=== PATIENT | female | born 1955 | race Caucasian/White ===

== ENCOUNTER 2016-04-05 15:52 | Inpatient (IN) | payer MEDICARE, MEDICAID ==
[~2016-04-05] VITALS: Ht 165.1 cm; Wt 82.9 kg
--- NOTE | ~2016-04-05 | OR ---
PATIENT'S NAME: CHINA DYE [facility] AGE: 60 Y [address] ROOM: [address] [address] LOCATION: GPCU ADMIT DATE: 04/07/2016 OR/Procedure Report DISCHARGE DATE: 04/16/2016 FAMILY PHYSICIAN: Physician, Unknown ATTENDING PHYSICIAN: Narinder Souza SURGEON: Narinder Souza DO SENIOR C SOFTWARE ENGINEER: DATE OF PROCEDURE: 04/09/2016 PREOPERATIVE DIAGNOSIS: Multivessel coronary artery disease with unstable angina. POSTOPERATIVE DIAGNOSIS: Multivessel coronary artery disease with unstable angina. SECONDARY DIAGNOSES: Include: 1. Chronic obstructive pulmonary disease. 2. History of methamphetamine abuse. PROCEDURE PERFORMED: Coronary artery bypass grafting x3 with left internal mammary artery to the left anterior descending, reverse saphenous vein graft to the obtuse marginal, and right internal mammary artery to the right coronary artery. BRIEF HISTORY: Mrs. Dye is a 60-year-old white female with the above-noted diagnosis. DESCRIPTION OF PROCEDURE: She has been brought to the operative suite today after informed consent was obtained. Sterilely prepped and draped today for sternotomy with vein harvest. A sternal incision was made, and the sternum was divided in the midline with a sternal saw. Concurrently, saphenous vein was harvested endoscopically from the lower extremities. Mammary retractor was placed on the left. The left internal mammary artery was harvested in the standard fashion with surgical clips and electrocautery. We then moved the retractor to the right and then harvested the right internal mammary artery in a similar fashion. Heparin was then given, and each mammary was divided and prepared for bypass. Mammary retractor was removed. Sternal retractor was placed. Pericardium was opened, pericardial well was created, and cannulation sutures placed in the ascending aorta and right atrium for bypass and cardioplegia cannulas. The patient was then cannulated and connected to the bypass pump without difficulty. The vein was then prepared for bypass. An adequate ACT had been achieved, and cardiopulmonary bypass was initiated. A crossclamp was applied. Antegrade and retrograde cardioplegia was given along with topical cold saline for cardiac arrest, and the heart arrested without difficulty. The right coronary was identified and opened, and right internal PATIENT'S NAME: CHINA DYE [facility] AGE: 60 Y [address] ROOM: [address] [place], [place] [address] LOCATION: GPCU ADMIT DATE: 04/07/2016 OR/Procedure Report DISCHARGE DATE: 04/16/2016 FAMILY PHYSICIAN: Physician, Unknown ATTENDING PHYSICIAN: Narinder Souza mammary artery anastomosed to this in an end-to-side fashion with 7-0 Prolene. Bulldogs were removed momentarily to show good distal flow and an intact anastomosis, and the bulldog was replaced. Cardioplegia was given, and we performed our venous anastomosis to the obtuse marginal. Another dose of cardioplegia was given. Then, the left internal mammary artery was anastomosed to the left anterior descending artery again in end-to-side fashion with 7-0 Prolene. Bulldogs were removed from each of the mammary arteries, and the crossclamp was removed. Partial occlusion clamp was applied. Warm blood was now initiated via the retrograde system, and the vein graft was anastomosed to the ascending aorta with 4-0 punch and 6-0 Prolene. With this completed, the partial occlusion clamp was removed, vein graft de- aired, bulldog removed, and distal flow was given. All distal sites were hemostatic. The proximal site was hemostatic. Two atrial and one ventricular temporary pacemaking wires were placed. The retrograde cannula was removed, and ventilations were initiated. We then weaned from cardiopulmonary bypass without difficulty, removing the venous cannula, returning appropriate volume from the pump to the patient, and then removing the ascending aortic cannula. Copious amounts of antibiotic-infused saline was used to irrigate the sternum and mediastinum. The sternum was then approximated with the ZipFix system. Four chest tubes had been placed; one in each pleural space, one in the posterior pericardial space, and one in the anterior mediastinal space. We irrigated again and closed the soft tissues in a layered fashion. All sponge, instrument, and needle counts were correct, and the patient was transferred to the intensive care unit in stable condition. DO SALBADOR RANDOLPH/yosi /[id number] CC: Fabiana Quintana MD d: 04/23/16 1731 t: 04/24/16 1240, OPERATIVE SUMMARY
--- NOTE | ~2016-04-05 | DS ---
PATIENT'S NAME: CHINA DYE [facility] AGE: 60 Y [address] ROOM: [address] [place], [place] [address] LOCATION: GPCU ADMIT DATE: 04/07/2016 Discharge Summary DISCHARGE DATE: 04/16/2016 FAMILY PHYSICIAN: Physician, Unknown ATTENDING PHYSICIAN: Narinder Souza HOSPITAL COURSE: The patient is a 60-year-old white female with complaints of chest pain. She was admitted per the ACS protocol. Dr. Pitt was consulted for cardiac intervention. The patient underwent a stress test, which revealed [id number] inferolateral moderate reversibility. From there, the patient had an echocardiogram with an EF of 65 and no significant valvular abnormalities defined. The patient underwent a cardiac catheterization with Dr. Virgen. A multivessel coronary artery disease was identified. The patient was taken to the operative suite after consent for surgery on 04/09/2016 for coronary artery bypass grafting x3 vessels with a left internal mammary artery bypass to the left anterior descending, reverse saphenous vein graft to the obtuse marginal, and a right internal mammary artery bypass to the right coronary artery. The patient tolerated the surgery without complication. She transferred to the ICU postoperatively. She was slow to extubate. After extubation, she did require BiPAP due to elevated CO2 levels, but did not require reintubation. We did ask PT/OT to work with the patient. Her lines and drips were discontinued on postoperative day #1, and she transferred to the progressive care floor. In the following days, chest tubes, pacemaking wires, and Kong catheter were discontinued in the appropriate postoperative timeframe. She did not have any postoperative atrial fibrillation. Did have wound nurses come to see the patient as she did have a right-sided chest tube that had some depth to it and required special dressing changes. Care Management worked with the patient for discharge processing. The patient's home life is quite concerning. She is currently homeless. 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 During the patient's hospitalization, her client from her cancer, and therefore, the patient has nowhere to go home. The patient's children have allowed her to come stay with them; however, they do live in a hotel room. We did arrange for home health nurses to see the patient to keep an eye on her from a healing standpoint. The patient will require some dressing changes and close observation to ensure that she heals well. By 04/16/2016, the patient was found stable for discharge. DISCHARGE ORDERS: Include a cardiac prudent diet. Activity levels that include no pulling, pushing, or lifting heavier than 10 pounds until May 20, 2016. The patient will be asked to follow up with Cardiac Rehab on an outpatient basis. The patient will utilize a foam dressing to the chest tube sites. She is to remove the dressings with showering, and Home Health has PATIENT'S NAME: CHINA DYE [facility] AGE: 60 Y [address] ROOM: [address] [address] LOCATION: GPCU ADMIT DATE: 04/07/2016 Discharge Summary DISCHARGE DATE: 04/16/2016 FAMILY PHYSICIAN: Physician, Unknown ATTENDING PHYSICIAN: Narinder Souza contacted the home health nurse for the dressing changes. The patient will follow up with Dr. Quintana in 1 week. She will follow up with Cardiothoracic Surgery in 2 weeks, and she will follow up with Dr. Virgen in 2 weeks as well. FINAL DIAGNOSES: Include coronary artery disease, tobaccoism, hypertension, bipolar disorder, obesity, chronic obstructive pulmonary disease, and anxiety/depression. DISCHARGE MEDICATIONS: Include, 1. Lamictal 100 mg twice a day. 2. Celexa 40 mg daily. 3. Percocet 5/325 mg 1 to 2 every 4 to 6 hours as needed. 4. Amiodarone 200 mg twice a day. 5. Norvasc 2.5 mg twice a day. 6. Aspirin 81 mg daily. 7. Lipitor 40 mg daily. 8. Coreg 6.25 mg daily. 9. Lasix 40 mg daily. 10. Mucinex 1200 mg twice a day. 11. Potassium chloride 20 mEq daily. 12. Albuterol inhaler 2 puffs per inhalation 4 times a day. 13. Nicotine patch 21 mg, change daily. The patient verbalizes understanding of the discharge orders. The patient discharged in stable condition. KRYSTLE HENRIQUEZ APRN FOR DO NYDIA RANDOLPHQ/modl /[id number] d: 05/06/16 0432 t: 05/06/16 1131, DISCHARGE SUMMARY
--- NOTE | ~2016-04-05 | CON ---
PATIENT'S NAME: CHINA DYE [facility] AGE: 60 Y [address] ROOM: [place] [id number] LOCATION: GPCU ADMIT DATE: 04/07/2016 Consultation DISCHARGE DATE: FAMILY PHYSICIAN: PHYSICIAN, UNKNOWN ATTENDING PHYSICIAN: Fabiana Quintana DATE OF CONSULTATION: 04/15/2016 REFERRING PHYSICIAN: Dr. Souza REASON FOR CONSULTATION: Wound care consultation to evaluate and assess chest tube sites. HISTORY OF PRESENT ILLNESS: This is a 60-year-old female patient who was admitted to [facility] with chest pain. The patient ended up undergoing a coronary artery bypass grafting by Dr. Souza on 04/08/2016. The patient's chest tubes were removed on April 13. Sites had been left opened to air. The patient denies pain to her chest. She is complaining of buttocks pain and rating it a 5/10. The patient has been afebrile. She has a significant history of COPD, hypertension, depression, bipolar, obesity, and is a current smoker. She denies further skin issues. She reports a good oral intake. She has been working with physical and occupational therapy. She denies shortness of breath. She denies flu-like symptoms. She denies nausea or vomiting. She denies intermittent claudication symptoms. She denies history of DVT. PAST MEDICAL HISTORY: COPD, hypertension, bipolar, depression, obesity, and anxiety. PAST SURGICAL HISTORY: Partial liver removal, cholecystectomy, and hysterectomy. FAMILY HISTORY: The patient's father of cancer and her mother had heart disease. SOCIAL HISTORY: The patient lives in [place], [place]. She smokes about a pack of cigarettes per day and has done so for the last 35 years. She denies alcohol or illegal drug use. ALLERGIES: CONTRAST DYE, OPIOID, MORPHINE, ANALOX, PENICILLIN, CIPROFLOXACIN, CODEINE, AND HYDROCODONE. PATIENT'S NAME: CHINA DYE [facility] AGE: 60 Y [address] ROOM: [address] [place], [place] [address] LOCATION: GPCU ADMIT DATE: 04/07/2016 Consultation DISCHARGE DATE: FAMILY PHYSICIAN: PHYSICIAN, UNKNOWN ATTENDING PHYSICIAN: Fabiana Quintana REVIEW OF SYSTEMS: A 10-point review of systems was completed and all are negative except as mentioned above in the HPI. PHYSICAL EXAMINATION: VITAL SIGNS: Temperature 98.1, pulse 90, respirations 18, blood pressure 131/60, pulse oximetry 94% on 2 L. Height 5 feet 5 inches and weight 82.9 kg. GENERAL: The patient is alert and oriented, in no acute distress. HEENT: Head normocephalic, atraumatic. Oral mucosa intact. Anicteric sclerae. NECK: Supple without masses. RESPIRATORY: Even and unlabored. ABDOMEN: Soft. No organomegaly appreciated. EXTREMITIES: No edema noted. Pedal pulses +2. Capillary refill intact. Extremities are warm to touch. SKIN: Intact Mepilex foam dressing to the chest. Upper abdomen has 4 chest tube sites, opened to air. The middle two sites are slightly scabbed, wound bed moist and pink. The lateral right and lateral left site has yellow slough to the wound bed. Small amount of moist pink tissue. Periwound is erythemic. No purulent exudate. Small amount of serosanguineous exudate noted. Blanchable redness to buttocks and sacrum. No open areas noted. LABORATORY DATA: White blood cell count 7.1, hemoglobin 9.5, hematocrit 29.7, platelets 220. Sodium 138, potassium 4.2, chloride 97, bicarb 36, BUN 23, creatinine 0.6, and glucose 98. ASSESSMENT AND PLAN: Again, this 60-year-old female patient admitted to [facility] with chest pain. She underwent a coronary bypass grafting by Dr. Souza on 04/08/2016. Wound Care consult to evaluate and assess chest tube sites. 1. Upper abdomen chest tube site from recent CABG. Wounds appear down to the subcutaneous tissue. No purulent exudate noted. Periwounds are slightly erythemic. There appears to be slough to the wound beds. We will cleanse with hydrogen peroxide x1. Instructed nursing to loosely pack Aquacel into wound bed then cover with a Mepilex foam dressing, changing Tuesdays and Fridays. The erythema seems due to the inflammatory response, not active infection. We will continue to monitor and assess the site during hospitalization. 2. Blanchable redness to buttocks and sacrum. No pressure ulcers noted at this time. Instruct the patient on strict pressure redistribution measures. The patient has turned in bed [id number] q.2 hours. The patient was instructed to elevate heels all times on pillows. 3. Tobacco use. The patient is on a nicotine patch. She denied further help for tobacco cessation. PATIENT'S NAME: CHINA DYE [facility] AGE: 60 Y [address] ROOM: [place] [address] [facility] ADMIT DATE: 04/07/2016 Consultation DISCHARGE DATE: FAMILY PHYSICIAN: PHYSICIAN, UNKNOWN ATTENDING PHYSICIAN: Fabiana Quintana 4. Obesity. Lifestyle modifications were discussed. 5. Chronic obstructive pulmonary disease. The patient is on breathing treatments. RT is following. I would like to thank Dr. Souza for this consultation. ILDA BLOCK APRN FOR MD CHETAN HEREDIA/yosi /[id number] d: 04/15/16 1833 t: 04/21/16 1159, CONSULTATION REPORT
--- NOTE | ~2016-04-05 | ECHO ---
Transthoracic Echocardiography Report (TTE) Demographics Patient Name CHINA DYE Date of Study 04/05/2016 Patient Number [id number] Visit Number [id number] Date of 1955 Room Number G6313 Accession Number [id number] Gender Female Age 60 year(s) Referring Mariano Hartley MD Decorator Mannequin Missy Hall [facility], Physician Jennifer Cervantes RVT Physician Interpreting [facility] Environmental Compliance Specialist Physician Joleen REYES Supervising Ordering Physician MD/MLP Nurse Stress Machinist Helper Marine Conclusions Summary The estimated left ventricular ejection fraction is 65%.Moderate to severe concentric left ventricular hypertrophy with normal internal dimensions and WM. The left atrium is moderately dilated by LA volume index measurement. MAC. Mild aortic sclerosis. Trivial circumferential pericardial effusion. Mild MR. Trivial TR with normal pulmonary pressures. Procedure Type of Study TTE procedure:2D Echocardiogram. Procedure Date Date: 04/05/2016 Start: 07:09 PM Study Location: Inpatient Portable Technical Quality: Good visualization Indications:Chest pain. Additional Indications:htn Appropriate Use Criteria: 9 Patient Status: Routine Rhythm: Within normal limits HR: 67 bpm BP: 168/93 mmHg M-Mode/2D Measurements LV Diastolic Dimension: 4.81 cm LV Systolic Dimension: 3.26 cm LV Septum Diastolic: 1.79 cm LV Septum Systolic: 2.47 cm LV PW Diastolic: 1.74 cm AO Root Dimension: 1.9 cm Cardiac Output: 5.91 l/min AV Cusp Separation: 2.2 cm RV Diastolic Dimension: 1.3 cm LA volume: 79 ml LVOT: 2 cm RV Base: 3.24 cm LVOT VTI: 28.1 cm RV Mid: 2.23 cm LV Stroke volume: 88.23 ml TAPSE: 2.47 cm TDI-S': 17 cm/s Doppler Measurements AV Peak Velocity: 1.6 m/s MV Peak E-Wave: 0.56 m/s AV Peak Gradient: 10.24 mmHg MV Peak A-Wave: 1.15 m/s AV Mean Gradient: 6 mmHg MV E/A Ratio: 0.49 LVOT Peak Velocity: 1.13 m/s MV P1/2t: 89 msec TR Gradient:15.84 mmHg PV Peak Velocity: 1.1 m/s Estimated RAP:3 mmHg PV Peak Gradient: 4.84 mmHg Estimated RVSP: 19 mmHg Estimated PASP: 18.84 mmHg E' Septal Velocity: 0.05 m/s A' Septal Velocity: 0.07 m/s E' Lateral Velocity: 0.05 m/s A' Lateral Velocity: 0.11 m/s Findings Left Ventricle Moderate to severe concentric left ventricular hypertrophy rith normal internal dimension,EF and WM. Right Ventricle Normal right ventricle structure and function. Left Atrium The left atrium is moderately dilated by LA volume index measurement. Right Atrium Normal right atrial size. Mitral Valve Mild mitral regurgitation by color Doppler. Mild mitral annular calcification. Aortic Valve The aortic valve is mildly sclerotic. Tricuspid Valve Trivial tricuspid regurgitation by color Doppler. Pulmonic Valve Normal pulmonic valve structure and function. Pericardial Effusion Trivial pericardial effusion. Miscellaneous Visualized portions of the aortic root and ascending aorta appear normal in size. Pleural Effusion No evidence of pleural effusion. Contractility Score LV regional wall motion:(0-Non visualized 1-Normal 2-Hypokinesis 3-Akinesis 4-Dyskinesis 5-Aneurysm) Signature dtt: Joleen Virgen dtd: 04/05/16 1909 Physician Self Edit
--- NOTE | ~2016-04-05 | ENPV ---
Vascular Lower Extremity Vein Mapping Procedure Demographics Patient Name CHINA DYE Date of Study 04/07/2016 Patient Number [id number] Gender Female Date of 1955 Age 60 Visit Number [id number] Height 65 Accession Number [id number] Weight 183.43 Referring Mariano Hartley MD Interpreting Jamel Potts MD Physician Physician Physician Ordering Physician Libby Ricks Branch Sales Manager DO Jig Builder Helper Elza Watts T, [facility] Conclusions Summary No evidence of superficial thromphlebitis in the GSV bilaterally. Procedure Type of Study: Veins:Lower Extremity Vein Mapping, Vein Mapping. Indications for Study:Pre-op CABG. Appropriate Use Criteria:8 Allergies - Contrast. - Morphine. - Penicillin. - Other:(Acetaminophen). - Codiene. - Other:(Ciprofloxacin). - Other:(Hydrocodone). Patient Status:Routine. Study Location:Inpatient Portable. Technical Quality:Adequate visualization. Risk Factors - The patient's risk factor(s) include: chronic lung disease and arterial hypertension. - The patient has a current/recent (within 1 year) tobacco history. - The patient's last creatinine was 0.8 mg/dl. Velocities are measured in cm/s ; Diameters are measured in cm + ++--------++--------+ !Superficial - Great Saphenous Vein !!Right !!Left ! + ++--------++--------+ !Location !!Diameter!!Diameter! + ++--------++--------+ !Sapheno Femoral Junction !! !!0.47 ! + ++--------++--------+ !GSV High Thigh !!0.23 !!37 ! + ++--------++--------+ !GSV Mid Thigh !!0.26 !!0.35 ! + ++--------++--------+ !GSV Low Thigh !!0.28 !!0.22 ! + ++--------++--------+ !GSV Knee !!0.27 !!0.25 ! + ++--------++--------+ !GSV High Calf !!0.2 !!0.16 ! + ++--------++--------+ !GSV Mid Calf !!0.23 !!0.17 ! + ++--------++--------+ !GSV Low Calf !!0.27 !!0.2 ! + ++--------++--------+ Signature dtt: YOJANA MCCLENDON dtd: 04/07/16 1752 Physician Self Edit
--- NOTE | ~2016-04-05 | ER ---
PATIENT'S NAME: DYE CHINA Flor [facility] AGE: 60 Y [address] ROOM: [place] [address] LOCATION: GPCU ADMIT DATE: 04/05/2016 ER/Outpatient Report DISCHARGE DATE: FAMILY PHYSICIAN: PHYSICIAN, UNKNOWN ATTENDING PHYSICIAN: Fabiana Quintana Time of Arrival: 1550 hours. Time of Evaluation: 1550 hours. CHIEF COMPLAINT: Chest pain. HISTORY OF PRESENT ILLNESS: The patient is a 60-year-old female who presents to the emergency department today with a chief complaint of chest pain. She reports she was lying down to take a nap when she developed sudden onset of heaviness in her mid chest. She reports it was, "like an elephant sitting on my chest." She felt dizzy at that time. She does report she has chronic shortness of breath. This is not significantly worse than normal. She does report she gets short of breath with exertion, but she feels like this may be do more for her as far as COPD. She denies any nausea or vomiting. No diaphoresis. Pain initially was 5 to 6/10. EMS arrived and did give the patient aspirin and nitroglycerin. She had a total of 4 baby aspirin and 1 nitroglycerin sublingual. Did bring her pain down to a 2. She was then initiated on the nitroglycerin drip and the pain resolved. MEDICATIONS: Please see list. ALLERGIES: PENICILLIN, CODEINE, CIPROFLOXACIN, AND CONTRAST DYE. PAST MEDICAL HISTORY: COPD, hypertension, bipolar, anxiety, depression, right bundle branch block, nonobstructive coronary artery disease. PAST SURGICAL HISTORY: Cholecystectomy, hysterectomy, liver removal due to infection, cataract surgery, and tubal ligation. SOCIAL HISTORY: The patient smokes half pack per day for 43 years. Denies any alcohol use. She has had history of remote methamphetamine abuse. FAMILY HISTORY: Mother with 4-vessel bypass at 74. Father with throat cancer. PATIENT'S NAME: DYE [facility] AGE: 60 Y [address] ROOM: [place] [address] LOCATION: GPCU ADMIT DATE: 04/05/2016 ER/Outpatient Report DISCHARGE DATE: FAMILY PHYSICIAN: PHYSICIAN, UNKNOWN ATTENDING PHYSICIAN: Fabiana Quintana ROS: All systems are reviewed by myself and are negative with the exception of those discussed in the HPI and past medical history. PHYSICAL EXAMINATION: VITAL SIGNS: Weight 84.6 kg, blood pressure 172/103, pulse 91, respiratory rate 16, temperature 99.0, oxygen saturation 93% on 2 L nasal cannula. GENERAL: The patient is a 60-year-old female, well-developed, well-nourished, obese, in no acute distress. HEENT: Head: Normocephalic, atraumatic. Pupils are equal, round, and reactive to light and accommodation. Extraocular motions are intact. Nares are patent bilaterally. NECK: Supple. There is no nuchal rigidity. No JVD. CARDIOVASCULAR: Regular rate and rhythm. No murmurs, rubs, or gallops. LUNGS: Diminished diffusely. No wheezes, rales, or rhonchi. ABDOMEN: Soft, nontender, and nondistended. No rebound, rigidity, or guarding. MUSCULOSKELETAL: The patient moves all 4 extremities. SKIN: Warm and dry. There are no rashes or lesions noted. LABORATORY DATA AND X-RAYS: Obtained. An EKG is obtained and is interpreted by myself at 1156 hours, shows sinus rhythm with a rate of 85, normal axis, normal interval. No ST elevation. There is ST depression in V5, V6, and 1. There is some T-wave inversions, which do appear new compared to 2010. Chest x-ray shows no acute process. CBC is normal. Coags are normal. BNP is 1088. CMP is unremarkable except for potassium of 3.6. LFTs normal. Magnesium is normal. Cardiac enzymes are normal. IMPRESSION: 1. Chest pain, rule out acute coronary syndrome. 2. Poorly controlled hypertension. 3. Tobacco abuse. 4. Chronic obstructive pulmonary disease. 5. Initial visit. EMERGENCY DEPARTMENT COURSE: The patient was brought back to the examination room. Seen and evaluated by myself. IV is established. Laboratory analysis, imaging, and EKG are obtained as described above. The patient had been given aspirin and nitroglycerin prior to arrival. She was initiated on nitroglycerin drip prior to arrival. The patient's initial blood pressures were in the 220s/130s per EMS. The patient's blood pressures attempted to be dropped to 20-25%. She is currently pain-free on the nitroglycerin drip. I have contacted Dr. Quintana, who is on-call for the patient's primary care doctor. She had seen and PATIENT'S NAME: CHINA DYE [facility] AGE: 60 Y [address] ROOM: G[address] [place], [place] [address] [facility] AD[facility] DATE: 04/05/2016 ER/Outpatient Report DISCHARGE DATE: FAMILY PHYSICIAN: PHYSICIAN, UNKNOWN ATTENDING PHYSICIAN: Fabiana Quintana evaluated the patient here in the emergency department. She does agree to accept the patient for further evaluation, treatment, and management. DISPOSITION/FOLLOW-UP: The patient is admitted under the care of Dr. Durbin for Dr. Huff in stable condition. DO SANDRO JOY/modl /[id number] d: 04/06/16717 t: 04/06/16 0822, OUTPATIENT REPORT
--- NOTE | ~2016-04-05 | CON ---
PATIENT'S NAME: CHINA DYE [facility] AGE: 60 Y [address] ROOM: [id number] [place], [place] [address] LOCATION: GPCU ADMIT DATE: 04/05/2016 Consultation DISCHARGE DATE: FAMILY PHYSICIAN: PHYSICIAN, UNKNOWN ATTENDING PHYSICIAN: Fabiana Quintana DATE OF CONSULTATION: 04/06/2016 REFERRING PHYSICIAN: Joleen Virgen MD The patient of Dr. Fabiana Quintana. Dear Dr. Quintana: Thank you for asking me to see Mrs. Dye who is a 60-year-old female patient who presented with chest pain and discomfort to the emergency room yesterday. The patient states that this is the first time she has ever had any kind of chest discomfort. In fact, day before yesterday, she was doing reasonably well. Yesterday, she had about 6 different episodes of chest heaviness, which feels like an elephant sitting on her chest. The initial episode lasted about 15 minutes and was associated with numbness of the left arm. She felt dizzy with that without any other associated features or radiation. Subsequent spells were shorter lived. The last one was about 45 minutes before she presented to the emergency room. Since then, she has not had any further chest pain. She is currently on heparin and nitroglycerin intravenously. Her 12-lead EKG does reveal T-wave inversion involving the lateral leads. Her troponins are so far negative. Currently, she is pain-free and has a headache. The patient is not on any regular exercise program. She has been short of breath for the past year now to the point where she is in functional class 3 noticing shortness of breath going up and down a flight of stairs. There is no paroxysmal nocturnal dyspnea or orthopnea. She denies any lightheadedness, syncope, palpitations, or ankle swelling. The patient has history of hypertension, and she is an ongoing smoker. There is no history of diabetes. She does not know her lipids. FAMILY HISTORY: She has no family history of premature coronary artery disease. There is no history of IA, angina, or nitroglycerin use. There is no history of rheumatic fever, heart murmur, heart failure, dilated or enlarged heart, or any diagnosed cardiac arrhythmias. MEDICATIONS: Her current list of medications: 1. Lamictal 100 mg b.i.d. PATIENT'S NAME: [facility] AGE: 60 Y [address] ROOM: [place] [address] LOCATION: GPCU ADMIT DATE: 04/05/2016 Consultation DISCHARGE DATE: FAMILY PHYSICIAN: PHYSICIAN, UNKNOWN ATTENDING PHYSICIAN: Fabiana Quintana 2. Paxil 40 mg a day. 3. Oxycodone/acetaminophen 1 tablet every 5 hours p.r.n. ALLERGIES: IODINATED CONTRAST MEDIA, OPIOIDS, PENICILLIN, CODEINE, HYDROCODONE, ACETAMINOPHEN, PENICILLIN V, AND CIPROFLOXACIN. PAST MEDICAL HISTORY: 1. Positive for bipolar disorder and depression. 2. COPD. 3. E coli abscess of her liver operated 9 years ago. 4. Cholecystectomy. 5. Hysterectomy. 6. Cataract surgery. SOCIAL HISTORY: The patient is on disability. She denies abusing alcohol. She does not abuse any recreational drugs. She used to use methamphetamine 15 years ago and she has not used that for 15 years. Her appetite and weight are stable. Sleep is fair. FAMILY HISTORY: No premature coronary artery disease. REVIEW OF SYSTEMS: A 12-point review of systems shows the following positives: 1. Wheezing. 2. Skin cancers. PHYSICAL EXAMINATION: VITAL SIGNS: On examination, her blood pressure is 140/80, heart rate is in the 60s and regular, respirations are 18, and afebrile. HEENT: Normal. NECK: Supple with no JVD, thyromegaly, lymphadenopathy, or carotid bruit. PMI is not well located. HEART: First and second heart sounds are regular. There are no added sounds or murmurs. CHEST: Clear to auscultation with the exception of an occasional rhonchi. ABDOMEN: Soft and obese. Bowel sounds are normally present. EXTREMITIES: Reveal no edema. CENTRAL NERVOUS SYSTEM: Intact. ASSESSMENT: A 60-year-old female patient who is hypertensive and a smoker presenting with classical symptoms of angina. She has ruled out for myocardial infarction. We PATIENT'S NAME: [facility] AGE: 60 Y [address] ROOM: [place] [address] LOCATION: GPCU ADMIT DATE: 04/05/2016 Consultation DISCHARGE DATE: FAMILY PHYSICIAN: PHYSICIAN, UNKNOWN ATTENDING PHYSICIAN: Fabiana Quintana will stop the nitroglycerin now and do a Lexiscan Cardiolite study this morning and look at her echocardiogram before making final decisions. She does have contrast allergy. So, she may need preparation prior to administering contrast. Again, I appreciate this opportunity to participate in the care of Mrs. Dye. MD JUNIOR VILLARREAL/yosi /[id number] d: 04/06/16 0832 t: 04/22/16 1326, CONSULTATION REPORT
--- NOTE | ~2016-04-05 | ER ---
PATIENT'S NAME: DYE CHINA Flor [facility] AGE: 60 Y [address] ROOM: [place] [address] LOCATION: GPCU ADMIT DATE: 04/05/2016 ER/Outpatient Report DISCHARGE DATE: FAMILY PHYSICIAN: PHYSICIAN, UNKNOWN ATTENDING PHYSICIAN: Fabiana Quintana Time of Arrival: 1550 hours. Time of Evaluation: 1550 hours. CHIEF COMPLAINT: Chest pain. HISTORY OF PRESENT ILLNESS: The patient is a 60-year-old female who presents to the emergency department today with a chief complaint of chest pain. She reports she was lying down to take a nap when she developed sudden onset of heaviness in her mid chest. She reports it was, "like an elephant sitting on my chest." She felt dizzy at that time. She does report she has chronic shortness of breath. This is not significantly worse than normal. She does report she gets short of breath with exertion, but she feels like this may be do more for her as far as COPD. She denies any nausea or vomiting. No diaphoresis. Pain initially was 5 to 6/10. EMS arrived and did give the patient aspirin and nitroglycerin. She had a total of 4 baby aspirin and 1 nitroglycerin sublingual. Did bring her pain down to a 2. She was then initiated on the nitroglycerin drip and the pain resolved. MEDICATIONS: Please see list. ALLERGIES: PENICILLIN, CODEINE, CIPROFLOXACIN, AND CONTRAST DYE. PAST MEDICAL HISTORY: COPD, hypertension, bipolar, anxiety, depression, right bundle branch block, nonobstructive coronary artery disease. PAST SURGICAL HISTORY: Cholecystectomy, hysterectomy, liver removal due to infection, cataract surgery, and tubal ligation. SOCIAL HISTORY: The patient smokes half pack per day for 43 years. Denies any alcohol use. She has had history of remote methamphetamine abuse. FAMILY HISTORY: Mother with 4-vessel bypass at 74. Father with throat cancer. PATIENT'S NAME: DYE [facility] AGE: 60 Y [address] ROOM: [place] [address] LOCATION: GPCU ADMIT DATE: 04/05/2016 ER/Outpatient Report DISCHARGE DATE: FAMILY PHYSICIAN: PHYSICIAN, UNKNOWN ATTENDING PHYSICIAN: Fabiana Quintana ROS: All systems are reviewed by myself and are negative with the exception of those discussed in the HPI and past medical history. PHYSICAL EXAMINATION: VITAL SIGNS: Weight 84.6 kg, blood pressure 172/103, pulse 91, respiratory rate 16, temperature 99.0, oxygen saturation 93% on 2 L nasal cannula. GENERAL: The patient is a 60-year-old female, well-developed, well-nourished, obese, in no acute distress. HEENT: Head: Normocephalic, atraumatic. Pupils are equal, round, and reactive to light and accommodation. Extraocular motions are intact. Nares are patent bilaterally. NECK: Supple. There is no nuchal rigidity. No JVD. CARDIOVASCULAR: Regular rate and rhythm. No murmurs, rubs, or gallops. LUNGS: Diminished diffusely. No wheezes, rales, or rhonchi. ABDOMEN: Soft, nontender, and nondistended. No rebound, rigidity, or guarding. MUSCULOSKELETAL: The patient moves all 4 extremities. SKIN: Warm and dry. There are no rashes or lesions noted. LABORATORY DATA AND X-RAYS: Obtained. An EKG is obtained and is interpreted by myself at 1156 hours, shows sinus rhythm with a rate of 85, normal axis, normal interval. No ST elevation. There is ST depression in V5, V6, and 1. There is some T-wave inversions, which do appear new compared to 2010. Chest x-ray shows no acute process. CBC is normal. Coags are normal. BNP is 1088. CMP is unremarkable except for potassium of 3.6. LFTs normal. Magnesium is normal. Cardiac enzymes are normal. IMPRESSION: 1. Chest pain, rule out acute coronary syndrome. 2. Poorly controlled hypertension. 3. Tobacco abuse. 4. Chronic obstructive pulmonary disease. 5. Initial visit. EMERGENCY DEPARTMENT COURSE: The patient was brought back to the examination room. Seen and evaluated by myself. IV is established. Laboratory analysis, imaging, and EKG are obtained as described above. The patient had been given aspirin and nitroglycerin prior to arrival. She was initiated on nitroglycerin drip prior to arrival. The patient's initial blood pressures were in the 220s/130s per EMS. The patient's blood pressures attempted to be dropped to 20-25%. She is currently pain-free on the nitroglycerin drip. I have contacted Dr. Quintana, who is on-call for the patient's primary care doctor. She had seen and PATIENT'S NAME: CHINA DYE [facility] AGE: 60 Y [address] ROOM: [address] [place], [place] [address] [facility] ADMIT DATE: 04/05/2016 ER/Outpatient Report DISCHARGE DATE: FAMILY PHYSICIAN: PHYSICIAN, UNKNOWN ATTENDING PHYSICIAN: Fabiana Quintana evaluated the patient here in the emergency department. She does agree to accept the patient for further evaluation, treatment, and management. DISPOSITION/FOLLOW-UP: The patient is admitted under the care of Dr. Durbin for Dr. Huff in stable condition. DO SANDRO JOY/modl /[id number] d: 04/06/16717 t: 04/06/16 0824, OUTPATIENT REPORT
--- NOTE | ~2016-04-05 | CATH ---
Cardiac Diagnostic + PCI Report Demographics Patient Name HARDIK Ray Gender Female Date of 1955 Age 60 year(s) Patient Number [id number] Date of Study 04/07/2016 Visit Number [id number] Room Number G6319 [place] [id number] Ht 165.1 cm Wt 83.2 kg Referring Mariano Hartley MD Primary Physician Physician Performing Param Secondary Physician Physician Joleen REYES Diagnostic Param Assisting Physician Physician Joleen REYES Interventional Param Physician Spring Layer Physician Joleen REYES Findings and Conclusions Diagnostic Findings and Conclusion Calcification involving proximal coronary vessels. LVEDP 13. Significant left main lesion. Occluded RCA with retrograde collaterals from left. Diagnostic Recommendations IVUS left main. Consult CT surgeon. Interventional Findings and Conclusion IVUS distal left main 5.6 mm2; repeat 5.7 mm2. Interventional Recommendations Consult for CT surgery. Procedure Description The patient was brought to the diagnostic cardiac catheterization-EP laboratory in the fasting, non-sedated state. Informed consent was obtained in the written and verbal form after the risks and benefits were explained. The patient had no further questions and agreed to proceed. The planned puncture-incision site(s) were shaved and prepped with ChloraPrep and draped in the usual sterile manner. Conscious sedation, supplemental oxygen, and pain control medications were delivered by a registered nurse under physician guidance. Surface ECG rhythm, blood pressure measurement, and pulse oximetry were monitored throughout the procedure. Arterial access. The access site was infiltrated with lidocaine. The vessel was entered with the Seldinger technique. A sheath was advanced into the vessel and used for catheter placement. Selective left coronary angiography. A catheter was advanced into the left coronary vessel ostium under Fluoroscopic guidance. Contrast was injected by hand. Images were obtained in multiple projections. Selective right coronary angiography. A catheter was advanced into the right coronary vessel ostium under fluoroscopic guidance. Contrast was injected by hand. Images were obtained in multiple projections. Left heart catheterization. A catheter was advanced across the aortic valve to the left ventricle under fluoroscopic guidance. Resting hemodynamics were obtained. IVUS was performed. The vessel was cannulated. An .014 interventional wire was advanced across the lesson into the distal vessel. The IVUS catheter was advanced into position and imaging was performed. Vessel dimensions were measured. Arterial artery hemostasis was achieved. The patient was transferred to a regular nursing floor via cart accompanied by a nurse. The patient left the laboratory in stable condition. Diagnostic Cath Status: Urgent Procedure Procedure Type Diagnostic procedure:Angiography:, Coronary Angios /[facility] PCI procedure:Additional Imaging:, IVUS:, Initial Vessel Indications: Abnormal Stress Test and Unstable angina. The procedure was explained in detail to the patient. Risks, complications and alternative treatments were reviewed. Written consent was obtained. Medications Reviewed with Patient prior to Procedure. Angiographic Findings Dominance: Right Cardiac Arteries and Lesion Findings LMCA: Lesion on LMCA: Distal subsection.60% stenosis .The guidewire cross was successful. IVUS was performed. Pre PCI IVUS Devices used - Luge Wire .014 x 182. Number of passes: 1. - [place] IVUS catheter. Number of passes: 1. LAD: Moderate diffuse disease. D1 moderate diffuse disease. Lesion on Prox LAD: Proximal subsection.50% stenosis . LCx: Moderate diffuse disease. RCA: Retrograde collaterals from left. Lesion on Prox RCA: Proximal subsection.100% stenosis .Culprit lesion. Coronary Tree Procedure Data Procedure Date Date: 04/07/2016Start: 02:39 PMEnd: 03:52 PM Entry Locations - Antegrade Percutaneous access was performed through the Right Femoral artery (Primary location). A 7 Fr sheath was inserted. Hemostasis was successfully obtained using Suture. Closure Comments: Sutured in place by Silas Pollack . Procedure Medications Order and Administration + + + + + !Time !Medication !Dosage !Route ! + + + + + !04/07/2016 02:38 PM !Oxygen !2 l/min !NC ! + + + + + !04/07/2016 02:43 PM !Fentanyl !50 mcg !I.V. ! + + + + + !04/07/2016 02:45 PM !Versed !1 mg !I.V. ! + + + + + !04/07/2016 02:39 PM !Versed !1 mg !I.V. ! + + + + + !04/07/2016 03:05 PM !Heparin (ACC_3) !5000 units ! ! + + + + + !04/07/2016 03:31 PM !Heparin Drip ( 2500u/250ml) ! !I.V. drip ! + + + + + Devices Used - A6 Fr. BS JR 4 Diag. Catheterwas used for:LV Pressures. - A6 Fr. BS JR 4 Diag. Catheterwas used for:Right coronary angiography. - A6 Fr. BS JL 4 Diag. Catheterwas used for:Left coronary angiography. Contrast Material - Isovue [id number] ml Fluoroscopy Time: Diagnostic: 10:42 minutes. Total: 10:42 minutes. Fluoroscopy Dose: Diagnostic: 1668 mGy. Total: 1668 mGy. Estimated Blood Loss: 10 ml. Medical History Performed Procedures and Imaging Results - Stress testing with SPECT MPIwas performed on 04/06/2016. Results were: Positive. Allergies - Contrast. - Morphine. - Penicillin. - Other:(Acetaminophen). - Codiene. - Other:(Ciprofloxacin). - Other:(Hydrocodone). Risk Factors The patient risk factors include:hypertension, family history of premature CAD, chronic lung disease, last creatinine: 0.8 mg/dl, creatinine clearance: 96.99 ml/min and Current/Recent(w/in 1 year) tobacco use. Admission Data Admission Date: 04/07/2016 Admission Time: 04:23 PM Insurance Payors: Medicare. Admission Medications + +------+------+ + + + + !Medication !Dosage!Times !Last !Last !Administered !Comments ! ! ! !Per !Delivery !Delivery ! ! ! ! ! !Day !Date !Time ! ! ! + +------+------+ + + + + !Aspirin ! ! ! ! ! ! ! !(any) ! ! ! ! ! ! ! + +------+------+ + + + + !Statin (any)! ! ! ! ! ! ! + +------+------+ + + + + !MANDA ! ! ! ! ! ! ! !Inhibitor ! ! ! ! ! ! ! !(any) ! ! ! ! ! ! ! + +------+------+ + + + + !Beta Ronnell! ! ! ! ! ! ! !(any) ! ! ! ! ! ! ! + +------+------+ + + + + Clinical Evaluation Leading to Procedure - The patient's CAD presentation was assessed as: Unstable angina. - The patient's anginal syndrome during the past two weeks was assessed as: Class III according to the [place] Cardiovascular Society Classification System (CCS). Anti-anginal medications were prescribed during the past two weeks. The medication is: Beta Blockers. Hemodynamics Condition: Rest O2 Consumption: Estimated: 170.83Heart Rate: 57 bpm Pressures (mmHg) +-----+ + !Site !Pressure ! +-----+ + !AO !192/ (117) ! +-----+ + !LV !194/6 ,17 ! +-----+ + !LV !188/5 ,13 ! +-----+ + !AO !195/ (119) ! +-----+ + !LV !187/3 ,13 ! +-----+ + !AO !200/78 (121) ! +-----+ + Valve Gradients and Areas + +---------+---------+---------+ +---------+ + !Valve !Peak !Mean !Area !Index !Flow !Source ! + +---------+---------+---------+ +---------+ + !Aortic !0 !0 ! ! ! ! ! + +---------+---------+---------+ +---------+ + !Aortic !0 !0 ! ! ! ! ! + +---------+---------+---------+ +---------+ + Shunts Oxygen Values O2 Capacity 184.96 O2 Consumption 170.83 Signatures dtt: Joleen Virgen: 04/07/16 1439 Physician Self Edit
--- NOTE | ~2016-04-05 | CON ---
PATIENT'S NAME: [facility] AGE: 60 Y [address] ROOM: [place] [address] LOCATION: GPCU ADMIT DATE: 04/07/2016 Consultation DISCHARGE DATE: 04/16/2016 FAMILY PHYSICIAN: Physician, Unknown ATTENDING PHYSICIAN: Narinder Gibbs DATE OF CONSULTATION: 05/05/2016 REFERRING PHYSICIAN: Joleen Virgen MD CONSULTATION NOTE REQUESTING PHYSICIAN: Joleen Virgen MD REASON FOR CONSULTATION: Multi-vessel coronary artery disease. HISTORY OF PRESENT ILLNESS: The patient is a 60-year-old white female, who was admitted after having presented to the emergency department with complaints of chest pain. The chest pain had actually started the day prior with multiple episodes of chest discomfort, initially lasting anywhere from 10 to 15 minutes and then resolving. As the time went on, the episodes began to last longer and therefore, the patient did present. The patient had no other associated symptoms other than the left arm involvement. The patient after emergency department evaluation was admitted by Dr. Quintana. Dr. Virgen was consulted. The patient did undergo a positive stress test. An echocardiogram revealed an ejection fraction noted at 65% with no significant valvular abnormalities. The patient then underwent a cardiac catheterization and IVUS procedure. Findings were for a 60% left main with proximal LAD disease at 50%. Left circumflex was noted to be with moderately diffuse disease at 50%. The culprit lesion was the proximal RCA which was 100% occluded. Given this, Dr. Virgen has asked that Dr. Gibbs see the patient in consultation for coronary artery bypass grafting. PAST MEDICAL HISTORY: Illnesses: 1. Bipolar disorder. 2. Tobaccoism. 3. Anxiety and depression. 4. Hypertension. 5. Obesity. 6. COPD. PAST SURGICAL HISTORY: PATIENT'S NAME: [facility] AGE: 60 Y [address] ROOM: [address] [address] LOCATION: GPCU ADMIT DATE: 04/07/2016 Consultation DISCHARGE DATE: 04/16/2016 FAMILY PHYSICIAN: , Unknown ATTENDING PHYSICIAN: Narinder Gibbs Surgery/Procedures: 1. Partial liver removal. 2. Cholecystectomy. 3. Hysterectomy. 4. Bilateral cataract surgery. 5. Right oophorectomy. 6. Tubal ligation. ALLERGIES: PENICILLIN, CEPHALOSPORINS, AND CONTRAST DYE. SOCIAL HISTORY: The patient is a . 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 She is deemed disabled. She has four grown children. She smokes at least a pack of cigarettes a day and has done so for over 35 years. She does have a history of drug addiction, but states that she has been clean and sober for a few years now. She denies any past history with alcohol abuse. FAMILY HISTORY: Her mother had a history of heart disease and had undergone coronary artery bypass grafting surgery. Her dad from throat cancer. MEDICATIONS: 1. Lamictal 100 mg b.i.d. 2. Paxil 40 mg daily. 3. Oxycodone p.r.n. REVIEW OF SYSTEMS: System Review: GENERAL: No weight or appetite changes. No fever, chills, or sweats. HEENT: Does have glaucoma. Wears glasses. She does have dentures. RESPIRATORY: No unusual cough. No persistent dyspnea on exertion or shortness of breath. CARDIOVASCULAR: Chest pain as described above. This is the first time that she has had chest pain. No complaints of lower extremity edema. GASTROINTESTINAL: No persistent nausea, vomiting, constipation, or diarrhea. No persistent GERD symptoms. GENITOURINARY: No voiding complaints. MUSCULOSKELETAL: Some generalized arthritic aches and pains. Does not require ambulatory devices. NEUROLOGIC: No complaints of headaches, seizures, or syncope. PSYCHIATRIC: She does have a history with bipolar disorder, personality disorder, anxiety and depression. I think she has been hospitalized for these issues. There was some drug abuse as well and maybe an overdose that caused her to be hospitalized. PATIENT'S NAME: CHINA DYE [facility] AGE: 60 Y [address] ROOM: [id number] [place] [id number] LOCATION: GPCU ADMIT DATE: 04/07/2016 Consultation DISCHARGE DATE: 04/16/2016 FAMILY PHYSICIAN: Physician, Unknown ATTENDING PHYSICIAN: Narinder Gibbs ENDOCRINE: No diabetes or thyroid conditions that are diagnosed. INTEGUMENT: She has history with eczema and prior skin cancer. PHYSICAL EXAMINATION: VITAL SIGNS: Blood pressure 152/66, pulse 67, respirations 14, temperature 98.0 degrees, and O2 saturations 97%. Height is 165.1 cm, weight is 84.6 kg. GENERAL: Pleasant and cooperative. HEENT: Normocephalic with EOMIs intact. Conjunctivae clear. LUNGS: Clear to auscultation anteriorly. CARDIOVASCULAR: Regular rate and rhythm. ABDOMEN: Soft, obese, and nontender by 4 quadrants with positive bowel sounds throughout. EXTREMITIES: No overt varicosities or edema. NEUROLOGIC: Alert and oriented x3 with good symmetrical strength. SKIN: No suspicious skin lesions. LABORATORY DATA: Laboratory and test results are as per HPI. IMPRESSION AND PLAN: 1. Unstable angina. 2. Coronary artery disease requiring surgical revascularization. 3. Chronic obstructive pulmonary disease. 4. Tobaccoism. Dr. Gibbs spoke to the patient with regard to surgical revascularization. The risks and benefits of the procedure were discussed. Discussion of the risks include, but were not limited to, bleeding, requiring transfusion or return to the operative suite, myocardial infarction, cerebrovascular accident, renal and/or pulmonary failure. Also discussed were arrhythmias and infection as well as operative and postoperative mortality. We will plan for a three-vessel bypass. The patient's questions were asked and answered to her satisfaction. We would like to thank Dr. Virgen for allowing us to participate in the care of this pleasant woman. KRYSTLE HENRIQUEZ APRN FOR NARINDER GIBBS, DO DLQ/modl /[id number] d: 05/09/16 1304 t: 05/09/16 1721, CONSULTATION REPORT
--- NOTE | ~2016-04-05 | OR ---
PATIENT'S NAME: CHINA DYE [facility] AGE: 60 Y [address] ROOM: [address] [place], [place] [address] LOCATION: GICU ADMIT DATE: 04/07/2016 OR/Procedure Report DISCHARGE DATE: FAMILY PHYSICIAN: PHYSICIAN, UNKNOWN ATTENDING PHYSICIAN: Fabiana Quintana SURGEON: Aaron Ibrahim MD OTR VAN CDL TRUCK DRIVER: DATE OF PROCEDURE: 04/08/2016 PROCEDURES PERFORMED: Right radial arterial line, right internal jugular venous catheter, and transesophageal echocardiography. INDICATIONS FOR PROCEDURE: The patient is undergoing cardiopulmonary bypass for severe coronary artery disease. Need for [id number] pressure monitoring, volume assessment, vasoactive medications, and evaluation of heart function, pre and post bypass. PROCEDURE IN DETAIL: The patient was identified in the preop holding. The right arm was extended out upon 90 degrees. The radial artery was easily palpated. The area was cleaned with 2% chlorhexidine. A 20-gauge Arrow catheter was placed using the Seldinger technique. Bright red pulsatile blood was found on return and the catheter was sutured in place. Complications, none. Blood loss was none. After induction of general anesthesia, the patient was lying supine on the operating room table in Trendelenburg position. The right neck and chest were prepped with chlorhexidine 2%. Maximal sterile barriers were worn at all times. Ultrasound was used to visualize the right internal jugular vein and real-time guidance of the introducer needle. With a single stick, dark nonpulsatile blood was found on return and the wire was threaded easily. Ultrasound was then used to visualize the wire and internal jugular vein. The skin was nicked and dilated, and a 9-Anguillan, 10-cm introducer catheter was placed with the wire without complication. The wire was removed. The catheter was sutured into place and sterile dressings applied on top. Complications, none. Blood loss was none. After induction of general anesthesia, and placement of the central lines, a transesophageal echocardiogram probe was placed without complications. Please see the saved images and SDS data sheet for further details. Briefly, the left ventricle showed some hypertrophy and good ejection fraction of around 60%. There was a trace pericardial effusion. There was a trace mitral regurgitation and trace tricuspid regurgitation. The aortic valve was trileaflet with some mild sclerosis. No regurgitation or stenosis noted. The aortic valve area was about 4 cm. There were no atrial septal defects. There were no mobile plaques in the aorta and in the arch, there was approximately 6 PATIENT'S NAME: CHINA DYE [facility] AGE: 60 Y [address] ROOM: [id number] [place] [id number] LOCATION: [facility] ADMIT DATE: 04/07/2016 OR/Procedure Report DISCHARGE DATE: FAMILY PHYSICIAN: PHYSICIAN, UNKNOWN ATTENDING PHYSICIAN: Fabiana Quintana mm non-mobile plaque. AARON IBRAHIM MD JJP/yosi /[id number] d: 04/08/162100 t: 04/18/16 1053, OPERATIVE SUMMARY
--- NOTE | ~2016-04-05 | ENPV ---
Vascular Upper Extremities Arterial Duplex Procedure Demographics Patient Name CHINA DYE Date of Study Patient Number [id number] Gender Female Date of 1955 Age 60 Visit Number [id number] Height 65 Accession Number [id number] Weight 183.43 Referring Mariano Hartley MD Interpreting Jamel Potts MD Physician Physician Physician Ordering Physician Libby Ricks Dental Technician DO Staff Reporter Elza Watts T, [facility] Conclusions Summary Insonated arteries in the examined upper extremity(ies) are patent, with peak systolic velocities and diameters within normal limits. No evidence of stenosis in the bilateral upper extremities. Procedure Type of Study: Extremities Arteries:Upper Extremities Arterial Duplex, Arterial Duplex Upper Extremity Bilateral. Additional Indications:Different Blood Pressures, not within 20 mmHg Appropriate Use Criteria:8 Allergies - Contrast. - Morphine. - Penicillin. - Other:(Acetaminophen). - Codiene. - Other:(Ciprofloxacin). - Other:(Hydrocodone). Patient Status:Routine. Study Location:Inpatient Portable. Technical Quality:Good visualization. Risk Factors - The patient's risk factor(s) include: chronic lung disease and arterial hypertension. - The patient has a current/recent (within 1 year) tobacco history. - The patient's last creatinine was 0.8 mg/dl. Velocities are measured in cm/s ; Diameters are measured in cm Right Upper Extremities Duplex Measurements + +---+-----+ +---------+ !Location !PSV!Ratio!Wave Description !Diameter ! + +---+-----+ +---------+ !Prox Subclavian !141! !Biphasic ! ! + +---+-----+ +---------+ !Dist Subclavian !173!1.23 !Triphasic ! ! + +---+-----+ +---------+ !Axillary !212! !Triphasic ! ! + +---+-----+ +---------+ !Prox Brachial !175!1.01 !Triphasic ! ! + +---+-----+ +---------+ !Dist Brachial !118!0.67 !Triphasic ! ! + +---+-----+ +---------+ !Dist Radial !93 !0.79 !Triphasic ! ! + +---+-----+ +---------+ !Dist Ulnar !66 !0.56 !Triphasic ! ! + +---+-----+ +---------+ Left Upper Extremities Duplex Measurements + +---+-----+ +---------+ !Location !PSV!Ratio!Wave Description !Diameter ! + +---+-----+ +---------+ !Prox Subclavian !170! !Biphasic ! ! + +---+-----+ +---------+ !Dist Subclavian !138!0.81 !Biphasic ! ! + +---+-----+ +---------+ !Axillary !167! !Biphasic ! ! + +---+-----+ +---------+ !Prox Brachial !148!1.07 !Triphasic ! ! + +---+-----+ +---------+ !Dist Brachial !177!1.2 !Triphasic ! ! + +---+-----+ +---------+ !Dist Radial !98 !0.55 !Triphasic ! ! + +---+-----+ +---------+ !Dist Ulnar !103!0.58 !Triphasic ! ! + +---+-----+ +---------+ Signature dtt: YOJANA MCCLENDON dtlauro: Physician Self Edit
--- NOTE | ~2016-04-05 | PUL ---
PATIENT'S NAME: CHINA DYE [facility] AGE: 60 Y [address] ROOM: [address] [address] LOCATION: [facility] ADMIT DATE: 04/07/2016 Pulmonary DISCHARGE DATE: FAMILY PHYSICIAN: PHYSICIAN, UNKNOWN ATTENDING PHYSICIAN: Fabiana Quintana NAME OF PROCEDURE: Spirometry DATE OF PROCEDURE: April 07, 2016 TECH: LStreit, [employer] REASON FOR EXAM: Pre-surgical evaluation RESULTS: FVC was 1.99 liters which is 59% of predicted and low, FEV1 was 1.4 liters which is 54% of predicted and low, and FEV1/FVC was 70.5% and normal. The flow volume curve did not reveal any significant airflow limitation. After bronchodilator administration FVC increased to 2.28 liters which is a 14% increase and FEV1 increased to 1.64 liters which is a 17% increase. FEV1/FVC was 71.9%. PHYSICIAN INTERPRETATION: The patient has no airflow limitation but has a significant bronchodilator response. There is suggestion of restrictive lung disease but lung volumes are needed to confirm that. MD GEORGE SAMUELS/milton /[id number] dtt: 04/11/16 1522 , MACKENZIE LOERA dtd: 04/11/16 1050
--- NOTE | ~2016-04-05 | ESTC ---
Cardiac Perfusion Imaging Demographics Patient Name HARDIK Ray Gender Female Patient Number [id number] Race Visit Number [id number] [place] [id number] Room Number G6319 Accession Number [id number] Height 65 inches Date of 1955 Weight 183.4 pounds Interpreting Parma Goodrich Date of study 04/06/2016 Physician Supervising /KYLEP Param GILLIS Technologist Minerva Grigsby MD Ordering Physician Mariano Hartley MD Stress Caulkins Stacey cardiopulmonary technician RVT Stress ECG Reading Param Goodrich Nurse Sanjay Burks Physician health promoter Procedure Type: Nuclear Stress Test:Pharmacological, Lexiscan, Cardiolite Stress Test Procedure Start time: 04/06/2016 10:15 Indications: Chest pain. Risk Factors The patient risk factors include:Current/Recent(w/in 1 year) tobacco use, hypertension, family history of premature CAD, chronic lung disease, last creatinine: 0.8 mg/dl and creatinine clearance: 96.99 ml/min. Conclusions Summary Mildly dilated LV. Medium to large inferolateral moderate reversibility. Small to medium anterior moderate fixed disease most consistent with soft tissue ettenuation. LVEF:62%. Normal WM. Stress Protocols Resting ECG RSR. "T" wave inversion in inferolateral leads. Pre-stress physical exam: Un changed. Predicted HR: 159 bpm ECG Findings No ECG changes suggestive of ischemia. Arrhythmias No rhythm abnormality. Symptoms SOB. Nausea and vomitting. Stress Interpretation Hypertensive response to Lexiscan. Normal heart rate response. SOB and vomiting without chest pain. No EKG changes of ischemia. No arrythmias. Imaging Results Applied corrections - Motion correction applied High risk findings Summed scores - Summed stress score: 8 - Summed rest score: 5 - Summed difference score: 3 Stress ejection Ejection fraction:62 % EDV :192 ml ESV :73 ml Stroke volume :119 ml LV mass :194 gr LV size:Enlarged LV Normal LV function Imaging Protocols Rest Stress Isotope:Tc99m Sestamibi IV Isotope: Tc99m Sestamibi IV Isotope dose:13.8 mCi Isotope dose:43.2 mCi Date:04/06/2016 09:04 Date:04/06/2016 10:38 Technique: SPECT Technique: Gated Supine SPECT Supine IV remains in place after procedure. Scan Time:45-60 minutes post injection Procedure Medications - Regadenoson (Lexiscan) 0.4 mg IV over 10-15 sec. I.V. 0.4 mg. Medical History Other Previous Procedures + + +-------+ !Test name !Date !Remarks! + + +-------+ !Stress testing with SPECT MPI !04/06/2016! ! + + +-------+ Admission Medications + +------+ + +---------+ + !Name !Dosage!Times per day !Start date!Stop date!Details ! + +------+ + +---------+ + !Aspirin (any) ! ! ! ! ! ! + +------+ + +---------+ + !Statin (any) ! ! ! ! ! ! + +------+ + +---------+ + !MANDA Inhibitor (any) ! ! ! ! ! ! + +------+ + +---------+ + !Beta Ronnell (any) ! ! ! ! ! ! + +------+ + +---------+ + Admission Data Admission date: 04/07/2016 Admission Time: 16:23 Hospital Status: Inpatient. Signatures dtt: Joleen Virgen dtd: 04/06/16 [facility] Physician Self Edit
--- NOTE | ~2016-04-05 | ENPV ---
Vascular Upper Extremities Arterial Duplex Procedure Demographics Patient Name CHINA DYE Date of Study 04/07/2016 Patient Number [id number] Gender Female Date of 1955 Age 60 Visit Number [id number] Height 65 Accession Number [id number] Weight 183.43 Referring Mariano Hartley MD Interpreting Jamel Potts MD Physician Physician Physician Ordering Physician Libby Ricks Junior Loan Processor DO Bobbin Doffer Elza Watts T, RDCS Digna Bethea [facility] Conclusions Summary Insonated arteries in the examined upper extremity(ies) are patent, with peak systolic velocities and diameters within normal limits. No evidence of stenosis in the bilateral upper extremities. Procedure Type of Study: Extremities Arteries:Upper Extremities Arterial Duplex, Arterial Duplex Upper Extremity Bilateral. Additional Indications:Different Blood Pressures, not within 20 mmHg Appropriate Use Criteria:8 Allergies - Contrast. - Morphine. - Penicillin. - Other:(Acetaminophen). - Codiene. - Other:(Ciprofloxacin). - Other:(Hydrocodone). Patient Status:Routine. Study Location:Inpatient Portable. Technical Quality:Good visualization. Risk Factors - The patient's risk factor(s) include: chronic lung disease and arterial hypertension. - The patient has a current/recent (within 1 year) tobacco history. - The patient's last creatinine was 0.8 mg/dl. Velocities are measured in cm/s ; Diameters are measured in cm Right Upper Extremities Duplex Measurements + +---+-----+ +---------+ !Location !PSV!Ratio!Wave Description !Diameter ! + +---+-----+ +---------+ !Prox Subclavian !141! !Biphasic ! ! + +---+-----+ +---------+ !Dist Subclavian !173!1.23 !Triphasic ! ! + +---+-----+ +---------+ !Axillary !212! !Triphasic ! ! + +---+-----+ +---------+ !Prox Brachial !175!1.01 !Triphasic ! ! + +---+-----+ +---------+ !Dist Brachial !118!0.67 !Triphasic ! ! + +---+-----+ +---------+ !Dist Radial !93 !0.79 !Triphasic ! ! + +---+-----+ +---------+ !Dist Ulnar !66 !0.56 !Triphasic ! ! + +---+-----+ +---------+ Left Upper Extremities Duplex Measurements + +---+-----+ +---------+ !Location !PSV!Ratio!Wave Description !Diameter ! + +---+-----+ +---------+ !Prox Subclavian !170! !Biphasic ! ! + +---+-----+ +---------+ !Dist Subclavian !138!0.81 !Biphasic ! ! + +---+-----+ +---------+ !Axillary !167! !Biphasic ! ! + +---+-----+ +---------+ !Prox Brachial !148!1.07 !Triphasic ! ! + +---+-----+ +---------+ !Dist Brachial !177!1.2 !Triphasic ! ! + +---+-----+ +---------+ !Dist Radial !98 !0.55 !Triphasic ! ! + +---+-----+ +---------+ !Dist Ulnar !103!0.58 !Triphasic ! ! + +---+-----+ +---------+ Signature dtt: dtd: 04/07/16 0000 Physician Self Edit
--- NOTE | ~2016-04-05 | HP ---
PATIENT'S NAME: CHINA DYE [facility] AGE: 60 Y [address] [place] [facility] [place], [place] [address] [facility] ADMIT DATE: 04/05/2016 History & Physical DISCHARGE DATE: FAMILY PHYSICIAN: PHYSICIAN, UNKNOWN ATTENDING PHYSICIAN: Fabiana Quintana DATE OF SERVICE: CHIEF COMPLAINT: Chest pain. HISTORY OF PRESENT ILLNESS: China is a 60-year-old female, who began having chest pain today when she tried to lie down for a nap. She got very sharp pain midsternal, she got dizzy and lightheaded and states it felt like a pressure. She called the unit, was given some nitroglycerin and in the ER, got nitroglycerin IV which then caused the pain to completely resolve. It took about a full hour for the pain to go away. Her pain initially was a 5-6 and now it is zero. She has never had anything like this before. She does have shortness of breath on exertion which is related to her COPD. She can walk one block and then has to stop and rest. She does have a history of hypertension and admits that she has been off all of her medicines for at least one week. She does not know if she has high cholesterol. She is not diabetic and she does smoke a half pack a day for 43 years. FAMILY HISTORY: Positive for her mom needing a bypass surgery at age 74. No others with heart disease. PAST MEDICAL HISTORY: Operations include an open cholecystectomy in 1995, complete hysterectomy in 1999. She had part of her liver removed due to an infection in 2005, following an E. coli infection. She had cataract surgery in January 2016 and February 2016. No other operations. Hospitalizations; she was hospitalized one other time for cardiac problem and found to have mild nonobstructive coronary disease in 2010. Illnesses include hypertension, COPD, depression which is bipolar and managed by Kathy Candelario APRN. MEDICATIONS: 1. Paxil. 2. Lamictal, this listed as 100 mg a day. 3. Losartan 50 mg a day. 4. Propranolol 40 mg a day. 5. Clonidine 0.1 mg daily. Again, she has not been taking any of these for at least one week. ALLERGIES: PATIENT'S NAME: CHINA DYE [facility] AGE: 60 Y [address] ROOM: [id number] [place], [place] [address] [facility] ADMIT DATE: 04/05/2016 History & Physical DISCHARGE DATE: FAMILY PHYSICIAN: PHYSICIAN, UNKNOWN ATTENDING PHYSICIAN: Fabiana Quintana PENICILLIN, CIPRO, CODEINE, AND CONTRAST DYE, ALL CAUSE RASH. FAMILY HISTORY: Mother with 4-vessel bypass at age 74. Father of throat cancer at age 63. One brother of alcoholism and 2 other siblings are alive and well. Her 4 children and 8 grandchildren are healthy. 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 She continues to smoke, has smoked a half pack a day for 43 years. No alcohol use. She has been for about 10 years and lives here in town. 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 REVIEW OF SYSTEMS: GENERAL: Negative. No fatigue, fevers, chills, weight loss or weight gain. ENT: She wears glasses and was dizzy with the onset of pain, but otherwise is not dizzy or lightheaded. CARDIOVASCULAR: See HPI. RESPIRATORY: She gets short of breath walking a block and then have to quit. No other respiratory symptoms currently. GI: No nausea, vomiting, diarrhea, constipation, or blood in her stool. She has never had a colonoscopy. Rest negative. She has not had a mammogram for years. : Negative. DERM: Negative, other then her dog scratches her arms. NEURO: Negative. PSYCH: History of bipolar depression, follows with Kathy Candelario APRN. States she could not afford her medications and wanted to try to do without them. PHYSICAL EXAM: GENERAL: China is a well-developed, well-nourished 60-year-old female. She is alert, cooperative, in no acute distress. VITAL SIGNS: Temperature is 99, height 5 feet 5-1/2 inches, weight 84.6 kg. Blood pressure 172/103, after nitroglycerin it is 155/77. Pulse is 91 and regular, O2 saturation 93%-94%. HEENT: Pupils are equal and reactive. Extraocular muscles are intact. Sclerae clear. Oropharynx is bit dry. NECK: Supple without masses. HEART: Regular rate and rhythm without murmurs. LUNGS: Lung sounds reveal just very slight rhonchus breath sounds. ABDOMEN: Soft. No organomegaly or masses. EXTREMITIES: Reveal no pitting edema. Distal pulses are intact. SKIN: Does reveal some scarring and multiple tattoos. PATIENT'S NAME: CHINA DYE [facility] AGE: 60 Y [address] ROOM: [place] [address] [facility] ADMIT DATE: 04/05/2016 History & Physical DISCHARGE DATE: FAMILY PHYSICIAN: PHYSICIAN, UNKNOWN ATTENDING PHYSICIAN: Fabiana Quintana DIAGNOSTIC DATA: EKG shows inverted T-waves in the precordial leads as well as lateral. There is a question of developing Q-waves there as well. She has a partial right bundle. Chest x-ray reported as negative. Cardiac enzymes negative. Her white count 7.2, hemoglobin 13.6, platelets 193,000. PT and PTT are normal. ProBNP is elevated at 1088. Sodium 142, potassium 3.6, glucose 108, BUN 11, creatinine 0.8. GFR greater than 60. Magnesium 2.0. CK, CK-MB and troponin are negative. ASSESSMENT: 1. Acute coronary syndrome. 2. Tobacco use. 3. Hypertension, uncontrolled. 4. Bipolar depression. 5. Obesity. 6. Chronic obstructive pulmonary disease. PLAN: She is re admitted for observation. She is currently on heparin and nitroglycerin. We will start aspirin, beta-toni and MANDA inhibitor as well as atorvastatin per protocol. Dr. Virgen has been consulted. He will plan to see when he is able. We will schedule nuclear stress test tomorrow unless her enzymes are positive, then we will proceed with a heart cath. She does wish to be a full code at this time. Prognosis is fair. I have advised her to quit smoking and be more compliant with her medications. MD PATTY LERNER/yosi /[id number] D: 033 T: 731 HISTORY & PHYSICAL
[2016-04-05 16:20] LABS: BASOPHIL % 0.4 %; EOSINOPHIL # 0.1 K/uL (0.0-0.5); EOSINOPHIL % 1.8 %; HEMATOCRIT 41.1 % (33.0-46.0); HEMOGLOBIN 13.6 g/dL (10.0-15.0); IMMATURE GRANULOCYTE % 0.3 %; LYMPHOCYTE # 1.4 K/uL (0.8-4.0); LYMPHOCYTE % 19.7 %; MCH 29.8 pg (27.0-34.0); MCHC 33.1 gm/dL (32.0-36.5); MCV 90.1 fl (83.0-98.0); MONOCYTE # 0.4 K/uL (0.0-1.0); MONOCYTE % 5.4 %; MPV 9.3 fl (9.4-12.4); NEUTROPHIL # (ANC) 5.2 K/uL (1.8-7.8); NEUTROPHIL % 72.4 %; NRBC % 0 /100WBC (0-0.00); PLATELET COUNT 193 K/uL (150-450); RBC 4.56 M/uL (3.50-5.50); RDW-CV 13.2 % (11.9-14.6); WBC 7.2 K/uL (4.0-11.0)
[2016-04-05 16:30] LABS: PROTIME 10.9 SECONDS (9.6-11.1); PTT 27 SECONDS (25-32)
[2016-04-05 16:41] LABS: ALBUMIN 3.4 gm/dL (3.5-5.0); ALK PHOS 112 IU/L (33-138); ALT 16 IU/L (12-78); ANION GAP 12.6 (10.0-19.0); AST 12 IU/L (10-40); BLOOD UREA NITROGEN 11 mg/dL (6-24); CALCIUM 8.5 mg/dL (8.5-10.5); CHLORIDE 107 mMol/L (96-110); CO2 26 mMol/L (22-32); CPK 83 IU/L (21-215); CREATININE 0.8 mg/dL (0.5-1.1); ESTIMATED GFR (MDRD EQUATION) > 60; POTASSIUM 3.6 mMol/L (3.7-5.1); SODIUM 142 mMol/L (135-145); TOTAL BILIRUBIN 0.3 mg/dL (0.0-1.5); TOTAL PROTEIN 6.9 g/dL (6.0-8.4)
[2016-04-05 18:49] LABS: CPK 76 IU/L (21-215)
[2016-04-05] MEDS ORDERED: PAXIL40 M1 PO (18:54)
[2016-04-05] MEDS ORDERED: LAMICTAL100 MG PO (18:54)
[2016-04-05] MEDS ORDERED: PERCOCET 5-3251 EACH PO (18:59)
[2016-04-05 20:49] LABS: BILIRUBIN URINE NEGATIVE (NEGATIVE); BLOOD URINE 25 /UL (NEGATIVE); COLOR URINE YELLOW (YELLOW); GLUCOSE URINE NEGATIVE (NEGATIVE); KETONE URINE NEGATIVE (NEGATIVE); LEUKOCYTES URINE 25 /UL (NEGATIVE); NITRITE URINE NEGATIVE (NEGATIVE); PROTEIN URINE 15 mg/dL (NEGATIVE); TURBIDITY URINE 1+ (CLEAR); UROBILINOGEN URINE 1 mg/dL (NORMAL)
[2016-04-05 20:52] LABS: BACTERIA URINE NEGATIVE (NEGATIVE); MUCUS URINE 1+ (NEGATIVE)
[2016-04-05 22:48] LABS: CPK 66 IU/L (21-215)
--- NOTE | 2016-04-06 04:19 | NUR ---
1800: PT ADMITTED TO FLOOR FROM ER. WAS BROUGHT IN BY EMS FROM [place]. SHE WAS ABOUT TO LAY DOWN FOR A NAP AND HAD A SUDDEN ONSET OF CHEST PAIN THAT FELT LIKE AN FOOT BEING PUSHED INTO HER CHEST. SHE WAS GIVEN ASA BY EMS AND A NITRO GTT WAS STARTED. HER ENZYMES WERE NEGATIVE. EKG SHOWED SOME ST DEPRESSION. ER STARTED A HEPARIN GTT. SHE IS NORMALLY ON LAMICTAL AND PAXIL BUT HASN'T TAKEN ANY IN A WEEK. SHE IS ABLE TO GET UP WITH STEADY GAIT. SATS ARE GREATER THAN 90% ON ROOM AIR. PT IS A&O X3.
--- NOTE | 2016-04-06 05:23 | NUR ---
Significant Event: ADMITTED WITH CHEST PAIN FROM ER. ADMITTED TO FLOOR ON NITRO AND HEPARIN GTT. NITRO CONTINUES AT 20MCG/MIN. HEPARIN INCREASED TO 1100 UNITS/HR. UP WITH STANDBY ASSIST. DENIES CP ALL NIGHT. HAS BEEN GIVEN TYLENOL X2 FOR A HEADACHE. REMAINS ON ROOM AIR. NPO AFTER MIDNIGHT FOR POSSIBLE STRESS TEST IF ENZYMES NEGATIVE. OF NOW, HER ENZYMES HAVE BEEN NEGATIVE. Follow up:
[2016-04-06 06:48] LABS: CPK 57 IU/L (21-215)
[2016-04-06 12:07] LABS: CPK 56 IU/L (21-215)
--- NOTE | 2016-04-06 15:30 | NUR ---
Significant Event: PATIENT TO STRESS TEST TODAY. DENIES CHEST PAIN. UP IN ROOM ADLIB. TEARFUL THIS AM BECAUSE CELL PHONE AND UNABLE TO CALL DAUGHTER. FOUND TACK COVERER AND CHARGED PHONE NO MORE TEARS. NITRO STOPPED HEPARIN AT 1300UNITS/HR. NEXT PTT AT 2115. WAITING FOR STRESS TEST RESULTS Follow up:
--- NOTE | 2016-04-07 04:57 | NUR ---
Significant Event: DENIED CP ALL NIGHT. UP TO BR WITH STEADY GAIT. HEPARIN CONTINUES AT 1400 UNITS/HR. LOPRESSOR HELD AT HS DUE TO LOW HR. REMAINS ON ROOM AIR. PLAN: CLEAR LIQUID BREAKFAST AT 0600 AND HEART CATH AT 1400 Follow up:
--- NOTE | 2016-04-07 13:20 | NUR ---
Introduced self and role of care management to patient. She lives in [place]. She states that she is able to do all her own ADL's. She has a daughter that lives in [place] that assists as needed. She plans on returning home on discharge. She denies any needs at this time. Will continue to follow.
--- NOTE | 2016-04-07 17:22 | NUR ---
Significant Event: A/O X3, ANXIOUS AT TIMES. DENIES PAIN. TO LANGUAGE TRANSLATOR @ 1400, RETURNED TO FLOOR @ 1555. CABG CONSULT, WILL BE FIRST CASE TOMORROW AM WITH DR. GIBBS. RIGHT GROIN CATH SITE, SHEATH IN PLACE, WILL DRAW ACT @ 1730, LANGUAGE TRANSLATOR WILL COME BACK TO PULL SHEATH. BEDREST X6 HOURS POST SHEATH REMOVAL. MRSA SWAB SENT. DOING CAROTID U/S, HUNG. UPPER EXTREMITY ARTERIAL U/S AND VEIN MAPPING NOW. LEFT AC PIV, NS @ 100 ML/HR X 750ML, NITRO GTT @ 15 MCG/MIN, TITRATING FOR SBP. SBP >200 UPON ARRIVAL TO FLOOR. O2 @ 2L NC POST CATH. LUNGS DIM TO BASES. DRY, NON-PRODUCTIVE COUGH. Follow up: CABG IN AM.
[2016-04-07 21:47] LABS: BICARBONATE 27.2 mmol/L (18.0-23.0); PCO2 45 mmHg (35-45); PO2 63 mmHg (80-90)
[2016-04-08 03:47] LABS: BASOPHIL % 0.2 %; HEMATOCRIT 36.3 % (33.0-46.0); HEMOGLOBIN 11.7 g/dL (10.0-15.0); IMMATURE GRANULOCYTE # 0.1 K/uL (0.0-0.3); IMMATURE GRANULOCYTE % 0.5 %; LYMPHOCYTE # 0.9 K/uL (0.8-4.0); LYMPHOCYTE % 7.7 %; MCH 29.8 pg (27.0-34.0); MCHC 32.2 gm/dL (32.0-36.5); MCV 92.6 fl (83.0-98.0); MONOCYTE # 0.7 K/uL (0.0-1.0); MONOCYTE % 6.2 %; MPV 10.2 fl (9.4-12.4); NEUTROPHIL % 85.4 %; NRBC % 0 /100WBC (0-0.00); PLATELET COUNT 201 K/uL (150-450); RBC 3.92 M/uL (3.50-5.50); RDW-CV 13.2 % (11.9-14.6); WBC 11.7 K/uL (4.0-11.0)
--- NOTE | 2016-04-08 04:17 | NUR ---
Significant Event: A/O, SBP 150-170s, Nitro gtt at 25mcg/min infusing to L)AC, HR 50s, 2L O2 needed while asleep to keep sats >90%, Tylenol given x1 for back pain, patient anxious for surgery today, Benedryl given at HS, sheath pulled from R)groin at 2155, pressure held 20 min by sanitation laborer RN, no bleeding/hematoma at site, bedrest until 0430, NPO since MN for CABG, Bicarb running at 50ml to R)fa Follow up: 1st case CABG today
[2016-04-08 12:11] LABS: MCV 93.9 fl (83.0-98.0); MPV 10.3 fl (9.4-12.4); RDW-CV 13.3 % (11.9-14.6); WBC 13.4 K/uL (4.0-11.0)
[2016-04-08 12:19] LABS: PROTIME 14.7 SECONDS (9.6-11.1)
[2016-04-08 12:20] LABS: INR - (THERAPEUTIC) 1.4 (0.9-1.1)
[2016-04-08 12:27] LABS: RBC 2.62 M/uL (3.50-5.50)
[2016-04-08 12:28] LABS: HEMATOCRIT 24.6 % (33.0-46.0); HEMOGLOBIN 7.9 g/dL (10.0-15.0); MCH 30.2 pg (27.0-34.0); MCHC 32.1 gm/dL (32.0-36.5)
[2016-04-08 12:49] LABS: ALPHA ANGLE 68 degrees; CLOT FORMATION TIME 114 seconds; CLOTTING TIME 155 seconds; MAXIMUM CLOT FIRMNESS 50 mm; MAXIMUM LYSIS 0 %
[2016-04-08 12:50] LABS: ALPHA ANGLE 72 degrees (70-81); CLOTTING TIME 76 seconds (43-82); MAXIMUM CLOT FIRMNESS 51 mm (51-72)
[2016-04-08 13:18] LABS: BICARBONATE 26.2 mmol/L (18.0-23.0); PCO2 41 mmHg (35-45); PO2 298 mmHg (80-90)
[2016-04-08 13:19] LABS: POTASSIUM 3.4 mEq/L (3.7-5.1); SODIUM 141 mEq/L (135-145)
[2016-04-08 13:28] LABS: PCO2 55 mmHg (35-45); PO2 110 mmHg (80-90)
[2016-04-08 13:31] LABS: BICARBONATE 30.7 mmol/L (18.0-23.0); PCO2 46 mmHg (35-45); PO2 229 mmHg (80-90)
[2016-04-08 13:33] LABS: POTASSIUM 4.7 mEq/L (3.7-5.1); SODIUM 141 mEq/L (135-145)
[2016-04-08 13:34] LABS: BICARBONATE 26.4 mmol/L (18.0-23.0); PCO2 44 mmHg (35-45); PO2 218 mmHg (80-90); POTASSIUM 4.4 mEq/L (3.7-5.1); SODIUM 140 mEq/L (135-145)
[2016-04-08 13:35] LABS: BICARBONATE 25.9 mmol/L (18.0-23.0); PCO2 53 mmHg (35-45); PO2 194 mmHg (80-90)
[2016-04-08 13:36] LABS: POTASSIUM 4.6 mEq/L (3.7-5.1); SODIUM 140 mEq/L (135-145)
[2016-04-08 13:37] LABS: BICARBONATE 27.6 mmol/L (18.0-23.0); PCO2 51 mmHg (35-45); PO2 320 mmHg (80-90)
[2016-04-08 13:38] LABS: POTASSIUM 3.7 mEq/L (3.7-5.1); SODIUM 141 mEq/L (135-145)
[2016-04-08 13:39] LABS: BICARBONATE 25.9 mmol/L (18.0-23.0); PCO2 48 mmHg (35-45); PO2 258 mmHg (80-90); SODIUM 141 mEq/L (135-145)
[2016-04-08 13:40] LABS: POTASSIUM 3.5 mEq/L (3.7-5.1)
[2016-04-08 13:44] LABS: ANION GAP 10.6 (10.0-19.0); BLOOD UREA NITROGEN 16 mg/dL (6-24); CALCIUM 8.1 mg/dL (8.5-10.5); CHLORIDE 109 mMol/L (96-110); CO2 28 mMol/L (22-32); CREATININE 0.8 mg/dL (0.5-1.1); ESTIMATED GFR (MDRD EQUATION) > 60; POTASSIUM 3.6 mMol/L (3.7-5.1); SODIUM 144 mMol/L (135-145)
--- NOTE | 2016-04-08 16:43 | NUR ---
Significant Event:RESP: Extubated at 1622 to 4L NC. Expiratory wheeze bilaterally. Shallow breathing. SaO2 95%. CARDIO: Dual paced at 80 beats/min. Nitro gtt at 50 mcg/min. SBP 102. Chest tube output mediastinal 200 ml, pleural 230 ml sanguinous. Afebrile. Pulses . : Good urine output.
[2016-04-09 04:35] LABS: BICARBONATE 33.3 mmol/L (18.0-23.0); PO2 93 mmHg (80-90)
[2016-04-09 04:48] LABS: ANION GAP 8.8 (10.0-19.0); BLOOD UREA NITROGEN 17 mg/dL (6-24); CALCIUM 7.9 mg/dL (8.5-10.5); CHLORIDE 108 mMol/L (96-110); CO2 32 mMol/L (22-32); CREATININE 0.9 mg/dL (0.5-1.1); ESTIMATED GFR (MDRD EQUATION) > 60; SODIUM 144 mMol/L (135-145)
[2016-04-09 04:56] LABS: PCO2 100 mmHg (35-45)
[2016-04-09 05:03] LABS: POTASSIUM 4.8 mMol/L (3.7-5.1)
[2016-04-09 05:12] LABS: HEMOGLOBIN 10.8 g/dL (10.0-15.0); MCV 97.5 fl (83.0-98.0); MPV 10.7 fl (9.4-12.4)
[2016-04-09 05:15] LABS: HEMATOCRIT 34.9 % (33.0-46.0); MCH 30.2 pg (27.0-34.0); MCHC 30.9 gm/dL (32.0-36.5); RBC 3.58 M/uL (3.50-5.50)
--- NOTE | 2016-04-09 05:47 | NUR ---
Significant Event: PATIENT MORE IRRITABLE THIS MORNING. REFUSED TO GET UP TO CHAIR. NOT FOLLOWING STERNAL PRECAUTIONS, ATTEMPTED TO RE-EDUCATE PATIENT. CONTINUES TO BE A/V PACED AT 80. DC'D RADIAL ARTLINE, USING CUFF PRESSURES. NITRO GTT OFF. REPLACED 1GRAM CALCIUM CHLORIDE PER SLIDING SCALE. PLACED ON BIPAP THIS AM DUE TO CRITICAL ABG RESULTS. CHEST TUBE X4, BECOMING SEROSANGUINOUS. RUSH WITH GOOD URINE OUTPUT. HYPOACTIVE BOWEL SOUNDS, 1 DOSE ZOFRAN GIVEN FOR NAUSEA WITH AMBULATION. NO BM. RIGHT IJ INTRODUCER. PIV X2. AMIO GTT PER PROTOCOL. INSULIN GTT PER PROTOCOL. D5LR AT 20ML/HR. Follow up: MONITOR PCO2
[2016-04-09 09:02] LABS: BICARBONATE 32.1 mmol/L (18.0-23.0); PO2 108 mmHg (80-90)
[2016-04-09 09:04] LABS: PCO2 70 mmHg (35-45)
[2016-04-09 14:06] LABS: BICARBONATE 33.5 mmol/L (18.0-23.0); PCO2 65 mmHg (35-45); PO2 66 mmHg (80-90)
--- NOTE | 2016-04-09 17:42 | NUR ---
Significant Event: Patient is A/Ox3, follows all commands, very drowsy. Temp pacer off today. SR with HR 30-80's. SBP 107/137. CVP 6-15. Afebrile. On bipap 12/7 fio2 @ 40%. Lungs ascultated clear with occasional crackles. Friction rub. CTx4. Mediasteinalx2, fluctuations noted with respiration, total [id number] serosang output. Pleural, no fluctuations, total of 150ml of serosang drainage. CT dressing C/D/I. Hypoactive bowel sounds. Attempted to eat lunch but too drowsy to stay awake. Swallows medications fine. Gave PRN percocetx2, pain resolves post medication given. Insulin gtt discontinued. Mild SSI started with AC/HS accuchecks, did not treat. Follow up:Continue to monitor.
[2016-04-10 04:39] LABS: ANION GAP 12.1 (10.0-19.0); BLOOD UREA NITROGEN 19 mg/dL (6-24); CALCIUM 8.3 mg/dL (8.5-10.5); CHLORIDE 101 mMol/L (96-110); CO2 30 mMol/L (22-32); CREATININE 0.8 mg/dL (0.5-1.1); ESTIMATED GFR (MDRD EQUATION) > 60; POTASSIUM 4.1 mMol/L (3.7-5.1); SODIUM 139 mMol/L (135-145)
[2016-04-10 04:56] LABS: BICARBONATE 37.3 mmol/L (18.0-23.0); PCO2 66 mmHg (35-45); PO2 75 mmHg (80-90)
[2016-04-10 04:56] LABS: HEMOGLOBIN 10.4 g/dL (10.0-15.0); MCHC 31.5 gm/dL (32.0-36.5); MCV 95.1 fl (83.0-98.0); MPV 10.9 fl (9.4-12.4); RBC 3.47 M/uL (3.50-5.50); RDW-CV 13.8 % (11.9-14.6); WBC 9.3 K/uL (4.0-11.0)
--- NOTE | 2016-04-10 05:35 | NUR ---
Significant Event: Pt has been drowsy throughout this shift, but arousable. Oriented x3. Pupils are equal and reactive. Moves all extremities spontaneously and to command. Dressing to the sternum is clean and dry. Chest tube dressing has a small amount of drainage. Coreg was started this shift for high blood pressures. Lasix was given x1 per sliding standing order. 20 MEQ of KCl given per sliding scale order. Kong in place. Milk of Mag given this shift, No BM this shift. Follow up: Continue to monitor ABG's
--- NOTE | 2016-04-10 05:38 | NUR ---
On BiPAP 01/22, 30% most of shift. Around 0300 IPAP increased to 14 due to Vts dropping to 200s. Then at 0400 patient desatted to 86-87% and FiO2 increased to 40%. Tolerating fairly well. Continue per plan of care.
--- NOTE | 2016-04-10 09:52 | NUR ---
A - PT SCREENED D/T LOS. DROWSY. NAUSEA - MEDS GIVEN. S/P CABG. BIPAP. HT: 65" WT: 187# BMI: 31.1 LABS: ACCUCHECK WNL-REAS, GLU 128, ALB 3.4, MG 3.1, PREALB 20 MEDS: SSI, PEPCID, BOWEL/NAUSEA, LASIX DIET: CARDIAC, 2000 ML FLUID NEEDS: 0106-7452 KCAL (15-20 KCAL/KG), 77-85 G PRO (0.9-1 G/KG), 2000 ML FLUID (PER MD) D - INADEQUATE NUTRIENT INTAKE R/T DECREASED APPETITE S/P CABG AEB INTAKE RECORD. I - GOAL FOR INTAKE > 50% BY NEXT ASSESSMENT. WILL ADD ENSURE BID TO INC NUTRIENT INTAKE. M/E - WILL MONITOR INTAKE. F/U IN 4-5 DAYS
--- NOTE | 2016-04-10 15:32 | NUR ---
Transfer of care from Julius Jeter RN at 1304
[2016-04-10 16:44] LABS: BICARBONATE 39.5 mmol/L (18.0-23.0); PCO2 70 mmHg (35-45); PO2 77 mmHg (80-90)
--- NOTE | 2016-04-10 17:05 | NUR ---
Significant Event: RESP: BiPAP most of shift, off for meals and ambulation. FiO2 50%. Coarse lung sounds throughout. Weak cough. CARDIO: SBP 100s-130s. Afebrile. HR 90s. : Incontinent to urine. GI: No BM since 04/04. ACT: Ambulated with cardiac rehab in room/madison. Follow up: Cough, turn, deep breathe encouragement.
--- NOTE | 2016-04-10 19:43 | NUR ---
Patient is A/Ox3, follows all commands, sleepy but not as drowsy as yesterday. Walked into hallx1. Up to chair with 2 assist. SR-ST with HR 90- low 100's. SBP 120-140's. Coreg incresed to 6.[address] to FLACO bulbs. cpap -4L NC when eating/walking. Slightly coarse-coarse lung sounds throughout. SBPO2 >90%. Does drop saturations on NC when sleeping. Toradol given x1 for backpain. PRN percocet givenx1. Hypoactive bowel sounds. No BM since 04/04,started/gave miralax and colace today. ADA/cardiac diet with 2000ml FR, poor appetite. Accuchecks AC/HS, did not treat. Afebrile.
--- NOTE | 2016-04-11 04:43 | NUR ---
Patient continues to be drowsy but is oriented x3. Answers questions appropriatley. Has strong bilat upper and lower extremity strength. Afebrile. Continues on Bipap 50% with sats low-mid 90s. No BM this shift. No void this shift, bladder scanned and patient had 309ml with no urgency. 2 tab Percocet given x1 for patient c/o back and incisional chest pain. Follow up: Continue to monitor for voids and urinary urgency. Continue to wean Bipap.
--- NOTE | 2016-04-11 15:42 | NUR ---
Significant Event: TOOK OVER PT CARES AT 1200. PT HAS BEEN DROWSY; HAS BECOME MORE AWAKE THROUGHOUT THE DAY. ORIENTED X3. FOLLOWS COMMANDS. UP TO THE CHAIR WITH PHYSICAL THERAPY AFTER LUNCH. TRANSFERS WITH 2-ASSIST; UNSTEADY ON FEET. PT IS ON BIPAP. INCONTINENT LARGE AMOUNT OF URINE X1. BM TODAY. BOWEL SOUNDS HYPOACTIVE X4. DRESSING TO STERNAL SITE INTACT. IV TO R)FA SALINE LOCKED. DRAINS X2 INTACT, WITH 50 ML OUTPUT THIS SHIFT. AC/HS ACCUCHECKS WITH MILD SLIDING SCALE. POOR APPETITE; REFUSED LUNCH. Follow up: CONTINUE TO MONITOR
--- NOTE | 2016-04-12 03:14 | NUR ---
SIGNIFICANT EVENT: PT DROWSY THROUGHOUT SHIFT, ETCO2 IN THE 50s. AVAP SETTING ON BIPAP, 60% FIO2. IMPROVED THROUGHOUT SHIFT FOLLOWING 2MG BUMEX IV. RUSH PLACED DUE TO PATIENT INCONTINENCE AND INABILITY TO MEASURE URINE OUTPUT. FOLLOW UP:
[2016-04-12 09:55] LABS: BLOOD URINE 250 /UL (NEGATIVE); COLOR URINE YELLOW (YELLOW); GLUCOSE URINE NEGATIVE (NEGATIVE); KETONE URINE 150 mg/dL (NEGATIVE); LEUKOCYTES URINE 100 /UL (NEGATIVE); NITRITE URINE NEGATIVE (NEGATIVE); PROTEIN URINE 30 mg/dL (NEGATIVE); TURBIDITY URINE 1+ (CLEAR); UROBILINOGEN URINE 1 mg/dL (NORMAL)
[2016-04-12 09:57] LABS: BASOPHIL % 0.3 %; EOSINOPHIL # 0.4 K/uL (0.0-0.5); EOSINOPHIL % 3.7 %; HEMATOCRIT 32.1 % (33.0-46.0); HEMOGLOBIN 10.1 g/dL (10.0-15.0); IMMATURE GRANULOCYTE # 0.1 K/uL (0.0-0.3); IMMATURE GRANULOCYTE % 0.5 %; LYMPHOCYTE # 0.8 K/uL (0.8-4.0); LYMPHOCYTE % 7.8 %; MCH 30.3 pg (27.0-34.0); MCHC 31.5 gm/dL (32.0-36.5); MCV 96.4 fl (83.0-98.0); MONOCYTE # 1.1 K/uL (0.0-1.0); MONOCYTE % 10.1 %; MPV 9.9 fl (9.4-12.4); NEUTROPHIL # (ANC) 8.1 K/uL (1.8-7.8); NEUTROPHIL % 77.6 %; NRBC % 0 /100WBC (0-0.00); RBC 3.33 M/uL (3.50-5.50); RDW-CV 13.3 % (11.9-14.6); WBC 10.4 K/uL (4.0-11.0)
[2016-04-12 09:58] LABS: PLATELET COUNT 200 K/uL (150-450)
[2016-04-12 10:05] LABS: RBC URINE 20-50 #/HPF (NEGATIVE)
[2016-04-12 10:06] LABS: BACTERIA URINE NEGATIVE (NEGATIVE); EPITHELIAL URINE NEGATIVE #/HPF (NEGATIVE)
[2016-04-12 10:15] LABS: ALK PHOS 67 IU/L (33-138); ALT 18 IU/L (12-78); AST 15 IU/L (10-40); BLOOD UREA NITROGEN 29 mg/dL (6-24); CALCIUM 8.6 mg/dL (8.5-10.5); CHLORIDE 98 mMol/L (96-110); CREATININE 0.8 mg/dL (0.5-1.1); ESTIMATED GFR (MDRD EQUATION) > 60; POTASSIUM 4.3 mMol/L (3.7-5.1); SODIUM 139 mMol/L (135-145); TOTAL PROTEIN 6.3 g/dL (6.0-8.4)
[2016-04-12 10:16] LABS: ANION GAP 7.3 (10.0-19.0); CO2 38 mMol/L (22-32); TOTAL BILIRUBIN 0.4 mg/dL (0.0-1.5)
--- NOTE | 2016-04-13 04:41 | NUR ---
Significant Event: A/0 X 3. TURNED Q2 HOURS WHILE IN BED. REMAINED DROWSY AND SLEPT ALL EVENING BUT DOES AWAKEN EASILY TO VERBAL STIMULI. ALL VSS, AFEBRILE. AVAP SETTINGS ON BIPAP WHEN SLEEPING, HAVE TITRATED BETWEEN 30%-40%FI02. LUNGS REMAINS COARSE. 2 COMPRESSION BULB DRAINS. RIGHT SIDE 15ML OUTPUT, LEFT/MIDDLE 5 ML OUTPUT. DRESSING TO LEFT SIDE CHANGED. RUSH 450 UOP. I STATED EARLIER SHE HAS SLEPT ALL EVENING, NO COMLAINTS OF PAIN NO PAIN MEDS GIVEN OTHER THAN SCHEDULED TYLENOL. Follow up:
--- NOTE | 2016-04-13 17:19 | NUR ---
Significant Event: Patient A/O x 3. Up with 1-2 A. Dizziness upon standing. Orthostatics BP's negative. VSS on 2L O2. Off AVAPS for most of the day. To be on it at night and PRN (with increased lethargy). Lung sounds slightly coarse throughout the day. Pain controlled with scheduled tylenol. Refused 1700 dose. Chest tubes pulled today. Occlusive drsg C/D/I as well as sternal dressing. Catheter pulled at 1100. No void since. RFA PIV. ACHS accu checks. Requires a lot of encouragement to get up and ambulating. Tearful at end of shift due to close friend dying. Follow up: Continue as per plan of care. Increase activity.
[2016-04-14 03:21] LABS: BASOPHIL % 0.3 %; EOSINOPHIL # 0.4 K/uL (0.0-0.5); HEMATOCRIT 29.7 % (33.0-46.0); HEMOGLOBIN 9.5 g/dL (10.0-15.0); IMMATURE GRANULOCYTE # 0.1 K/uL (0.0-0.3); IMMATURE GRANULOCYTE % 1.1 %; LYMPHOCYTE # 1.1 K/uL (0.8-4.0); LYMPHOCYTE % 15.9 %; MCH 30.3 pg (27.0-34.0); MCV 94.6 fl (83.0-98.0); MONOCYTE # 0.8 K/uL (0.0-1.0); MONOCYTE % 11.8 %; MPV 9.9 fl (9.4-12.4); NEUTROPHIL # (ANC) 4.7 K/uL (1.8-7.8); NEUTROPHIL % 65.9 %; NRBC % 0 /100WBC (0-0.00); PLATELET COUNT 220 K/uL (150-450); RBC 3.14 M/uL (3.50-5.50); RDW-CV 13.4 % (11.9-14.6); WBC 7.1 K/uL (4.0-11.0)
[2016-04-14 03:34] LABS: ANION GAP 9.2 (10.0-19.0); BLOOD UREA NITROGEN 23 mg/dL (6-24); CALCIUM 8.4 mg/dL (8.5-10.5); CHLORIDE 97 mMol/L (96-110); CREATININE 0.6 mg/dL (0.5-1.1); ESTIMATED GFR (MDRD EQUATION) > 60; MAGNESIUM 2.3 mg/dL (1.3-2.6); POTASSIUM 4.2 mMol/L (3.7-5.1); SODIUM 138 mMol/L (135-145)
[2016-04-14 03:36] LABS: CO2 36 mMol/L (22-32)
--- NOTE | 2016-04-14 04:58 | NUR ---
Significant Event: A/0 X 3, AMBULATES 1 ASSIST WITH WALKER. ALL VSS, AFEBRILE. 02 2L NASAL CANULA DURING DAY. AVAP PER BIPAP WHILE RESTING AND SLEEPING AT 30%FI02 ALL EVENING WITH SATS IN UPPER 90'S. LUNGS COARSE TO DIMINISHED AT TIMES. HAS VOIDED WELL SINCE RUSH D/C. PAIN HAS BEEN CONTROLLED WITH SCHEDULED TYLENOL. SHE HAS SLEPT ALL EVENING TURNED Q2 HOURS. Follow up:
--- NOTE | 2016-04-14 13:23 | NUR ---
A - NUT F/U. S/P CABG. DECREASED APPETITE. ENC PO INTAKE. 1+ EDEMA. COPD. LABS: ACCUCHECK WNL->200, ALB 3.0 MEDS: KCL, PAXIL, LASIX, SSI, BOWEL/NAUSEA DIET: CARDIAC, 2000 ML FLUID. INTAKE: REF-50% ENSURE BID NEEDS: [id number] KCAL, 77-85 G PRO D - INADEQUATE NUTRIENT INTAKE R/T DECREASED APPETITE AEB INTAKE RECORD. I - GOAL FOR INTAKE > 50% BY NEXT ASSESSMENT. WILL ADD KTAE ZAVALA @ L&D TO INC NUTRIENT INTAKE M/E - WILL MONITOR INTAKE F/U IN 3-5 DAYS.
--- NOTE | 2016-04-14 15:05 | NUR ---
Social visit with patient today. We discussed discharge plans. She states that she is going to go home with her daughter. She states that her daughter will take care of her as long as she needs to. I did try to explain that we could look at a Medicare skilled stay but she was adement that she was going home iwth her daughter. She denies any needs at this time. Will continue to follow.
--- NOTE | 2016-04-14 16:45 | NUR ---
Significant Event: Patient A/O x 3. Up with 1A. Needs reminders for sternal precautions. VSS on 1L O2. Possibly can be weaned to room air when awake. Continues to be slightly coarse at times. Productive cough. Sternal dressing and old chest tube site dressings C/D/I. Gave Tylenol x 1 at 1527 for incisional pain. Worked more today with therapies than previous days. ACHS accu checks. Follow up: Continue as per plan of care. Continue to increase activity.
--- NOTE | 2016-04-15 05:44 | NUR ---
Patient A/Ox3. VSS on 1l while naping and bipap at HS. Lungs Clear diminished. Bowel sounds present. IV saline locked. Up one assist. All incision CDI. No complaints. Wants to go to daughters when DC'd.
--- NOTE | 2016-04-15 16:42 | NUR ---
Patient A/O x3. Up with SBA and gaitbelt. VSS on RA while awake. LS clear and diminished. Productive cough with clear/yellow sputum. Chest tube dressing changed by [facility] nurse. Gave tylenol x1 at 1250 for complaints of right-sided thoracic pain. ACHS accuchecks all WNL and no insulin needed. Refused bath today, but cooperative with all other cares. Patient requires reinforcement/motivation to follow sternal precautions and ambulate.
--- NOTE | 2016-04-15 17:21 | NUR ---
I HAVE REVIEWED THE CHARTING OF SN MAINE AND I AGREE WITH IT.
--- NOTE | 2016-04-15 23:10 | NUR ---
PT REFUSED TO WEAR HER BIPAP TONIGHT AND IS CURRENTLY ON 1L NC.
--- NOTE | 2016-04-16 04:33 | NUR ---
Significant Event: Patient A/Ox3. VSS on RA and 1L when sleeping. SBP 103-125. HR 74-84. Up SBA to bathroom. Several incontinent voids this shift. Tylenolx1 for pain. CT sites and sternal incision dressings CDI. Needs reminders for sternal precautions. Follow Up: Patient wants to go home today. Told her she would discuss it with physician.
[2016-04-16] MEDS ORDERED: CORDARONE,PACE200 MG PO (09:43)
[2016-04-16] MEDS ORDERED: NORVASC2.5 MG PO (09:44)
[2016-04-16] MEDS ORDERED: ASPIRIN LO-DOSE81 MG PO (09:46)
[2016-04-16] MEDS ORDERED: LIPITOR40 MG PO (09:47)
[2016-04-16] MEDS ORDERED: COREG6.25 MG PO (09:48)
[2016-04-16] MEDS ORDERED: LASIX40 MG PO (09:49)
[2016-04-16] MEDS ORDERED: MUCINEX1200 MG PO (09:50)
[2016-04-16] MEDS ORDERED: NICODERM CQ1 EAC1 TRANS (09:55)
[2016-04-16] MEDS ORDERED: K-TAB ER20 MEQ PO (09:57)
[2016-04-16] MEDS ORDERED: PROVENTIL OR V6.7 GM INH (09:59)
[2016-04-16] MEDS ORDERED: NICOTINE PATCH1 EAC1 TRANS ×2 (10:15→10:17)
[2016-04-16] MEDS ORDERED: NICODERM / HABIT7 MG TRANS (10:20)
--- NOTE | 2016-04-16 10:59 | NUR ---
SPOKE W/ PT RE: CARDIAC DIET DIET. DISCUSSED LIMITING FAT, CHOLESTEROL, AND SODIUM INTAKE. WRITTEN INFO AND RD CONTACT INFO PROVIDED. ENC PT TO CALL WITH QUESTIONS. WILL ASSIST NEEDED.
--- NOTE | 2016-04-16 11:28 | NUR ---
Social visit with patient today. She has signed discharge orders on chart. I did pffer and highly encourage patient to have home health on discharge. I explained that they would be able to monitor her incisions and help with medication set up. She agrees. She chose [facility]. I called and make referral to Vickie at [facility] and faxed referral information and d/c orders/face to face.
--- NOTE | 2016-04-16 15:11 | NUR ---
Discharge Summary: Patient A/O x 3. Up with minimal assistance with constant reminder to follow sternal precautions. Vital signs stable: HR 83, RR 18, BP 128/60, temperature 97.6 F, O2 saturation 92% on room air, and denies pain or shortness of breath. Incision sites healing with dressing applied due to drainage. Patient and daughter given instructions on how to care for surgical incisions sites, signs/symptoms to be alert for, new medications, heart healthy diet, activity restrictions, smoking cessation, post-operative cardiac surgery cares, and follow-up appointments with Dr. Souza, Dr. Virgen, and Dr. Quintana. Patient and daughter verbalize understanding of all teaching. Monitor and peripheral IV discontinued. Patient discharged from PCU to [facility] and then home to self care with daughter at 1500. Home health set up prior to dismissal. Dariusz JEROME 04/16/16
== END 2016-04-16 15:00 | disposition home health service (06) | DRG 233 ==
LOC: GMED 15:52 → GPCU 17:28 → GICU 04-07 16:23 → GPCU 04-07 16:23 → GICU 04-08 06:13 → GPCU 04-11 17:40
PROVIDERS: Emergency Medicine; Thoracic Surgery (Cardiothoracic Vascular Surgery); ADMIT Family Medicine
PROC: B240ZZ3 Ultrasonography of Single Coronary Artery, Intravascular (ICD-10-PCS; principal; 2016-04-07)
PROC: B2111ZZ Fluoroscopy of Multiple Coronary Arteries using Low Osmolar Contrast (ICD-10-PCS; principal; 2016-04-07)
PROC: 4A023N7 Measurement of Cardiac Sampling and Pressure, Left Heart, Percutaneous Approach (ICD-10-PCS; principal; 2016-04-07)
PROC: 5A1221Z Performance of Cardiac Output, Continuous (ICD-10-PCS; 2016-04-08)
PROC: 021009W Bypass Coronary Artery, One Artery from Aorta with Autologous Venous Tissue, Open Approach (ICD-10-PCS; 2016-04-08)
PROC: 02100Z9 Bypass Coronary Artery, One Artery from Left Internal Mammary, Open Approach (ICD-10-PCS; 2016-04-08)
PROC: B24BZZ4 Ultrasonography of Heart with Aorta, Transesophageal (ICD-10-PCS; 2016-04-08)
PROC: 02100Z8 Bypass Coronary Artery, One Artery from Right Internal Mammary, Open Approach (ICD-10-PCS; 2016-04-08)
PROC: 06BQ4ZZ Excision of Left Saphenous Vein, Percutaneous Endoscopic Approach (ICD-10-PCS; 2016-04-08)
DX: I25.110 Atherosclerotic heart disease of native coronary artery with unstable angina pectoris (principal); J96.02 Acute respiratory failure with hypercapnia; J44.9 Chronic obstructive pulmonary disease, unspecified; I10 Essential (primary) hypertension; F17.210 Nicotine dependence, cigarettes, uncomplicated; Z82.49 Family history of ischemic heart disease and other diseases of the circulatory system; F31.9 Bipolar disorder, unspecified; E66.9 Obesity, unspecified; Z23 Encounter for immunization
CPT/HCPCS: A9270; A9500; C1753; C1769; C1887; G0008; G0009; G0378; J0282; J0461; J1644; J1650; J1885; J1940; J2150; J2250; J2270; J2405; J2440; J2720; J2785; J3010; J3370; J3475; J3480; J3490; J7030; J7040; J7050; J7060; J7121; P9016; P9045; P9047

== ENCOUNTER 2016-04-30 11:00 | Inpatient (IN) | payer MEDICARE, MEDICAID ==
[~2016-04-30] VITALS: Ht 165.1 cm; Wt 82.0 kg
--- NOTE | ~2016-04-30 | CON ---
PATIENT'S NAME: CHINA DYE [facility] AGE: 60 Y [address] ROOM: [place] [address] LOCATION: GPCU ADMIT DATE: 04/30/2016 Consultation DISCHARGE DATE: FAMILY PHYSICIAN: Fabiana Quintana MD ATTENDING PHYSICIAN: Narinder Souza DATE OF CONSULTATION: 05/07/2016 REASON FOR EVALUATION: Sternal wound infection, antibiotic recommendation. CHIEF COMPLAINT: The patient states that her chest is sore. HISTORY OF PRESENT ILLNESS: Ms. Dye is a 60-year-old woman. She underwent coronary artery bypass grafting on April 09. She was dismissed from the hospital. About a week after her previous hospital discharge, there was some concern from visiting nursing about sternal wound infection. She was seen in clinic, felt to have a possible infection, and was prescribed some Bactrim and dressing changes. It is uncertain how much of the Bactrim she was actually taking, and she may have been nonadherent to several of her medications. Also, there may not have been the best of wound management for the patient at home. She presented again to clinic on the , and the area has markedly worsened. It was apparently much worse. She was not systemically ill. She was admitted to the hospital. She underwent debridement on the . Per the operative note, this was declared a superficial wound infection, although debridement did go down to the sternum itself. There was no evidence of sternal involvement. No mention of any wire removal. Initially on vancomycin, and she has been on cefazolin. I am asked to evaluate. She is feeling okay. Other than chest soreness, she is doing fine without any adverse reaction to her antibiotics. PAST MEDICAL HISTORY: Significant for coronary artery disease, status post recent bypass; tobacco use; depression; COPD; and cholecystectomy. ALLERGIES: INCLUDE PENICILLIN GIVING A RASH. SHE HAS DONE OKAY WITH CEFAZOLIN ON THIS HOSPITAL STAY. SOCIAL HISTORY: Positive for ongoing tobacco use. Does have a history of drug abuse, although not recently. No alcohol abuse. FAMILY HISTORY: PATIENT'S NAME: CHINA DYE [facility] AGE: 60 Y [address] ROOM: [place] [address] LOCATION: GPCU ADMIT DATE: 04/30/2016 Consultation DISCHARGE DATE: FAMILY PHYSICIAN: Fabiana Quintana MD ATTENDING PHYSICIAN: Narinder Souza Positive for cancer and heart disease. REVIEW OF SYSTEMS: Pertinent positives include: MUSCULOSKELETAL: The patient is with the chest soreness. The patient denies any and all other symptoms. Remainder of a complete review of systems is otherwise negative. PHYSICAL EXAMINATION: GENERAL: The patient is lying in bed, sleepy, in no acute distress. HEENT: The patient is anicteric. No conjunctival lesions noted. Ears, nose, and throat: Oropharynx has no thrush. CARDIOVASCULAR: Heart has a regular rate and rhythm. RESPIRATORY: Breathing is easy and unlabored. Lungs are clear bilaterally. GASTROINTESTINAL: Abdomen is soft and nontender. Normoactive bowel sounds are present. GENITOURINARY: No suprapubic tenderness. NEUROLOGIC: The patient is awake, alert, and appropriate in conversation. LYMPHATIC: No cervical lymphadenopathy. MUSCULOSKELETAL: No effusions of fingers, wrists, elbows, shoulders, or knees. INTEGUMENTARY: The patient is with no rash. The chest surgery site looks okay. No obvious purulence or erythema at this time. LABORATORY DATA: Laboratory studies are reviewed in the electronic medical record. ASSESSMENT AND RECOMMENDATIONS: Superficial sternal wound infection. Assuming that this is a superficial sternal wound infection, she does not require long-term antibiotics. Should this actually have been a deeper infection, there might be infected/colonized wires which would require removal, etc. Per Surgery report, there was no evidence of this. Therefore, we will treat as a superficial sternal wound infection. We can use oral antibiotics for this. Although she is tolerating beta-lactam, I will go ahead and transition her to oral doxycycline rather than oral cephalexin. This will have the benefit of possibly hitting the diphtheroids that were present on culture should these be clinically relevant. They usually are not, but per the lab, there was heavy growth of them, so perhaps they were playing some sort of pathogenic role. Many of these diphtheroids are beta-lactam resistant. I would treat her through May 15 for 14 days after surgery. She will require good wound care. Should the area not heal up well, open up again. Then, we will have to consider the possibility of deeper/bony involvement, but hopefully, this will not be the case. PATIENT'S NAME: HARDIKCHINA [facility] AGE: 60 Y [address] ROOM: [id number] [place], [place] [address] LOCATION: [facility] ADMIT DATE: 04/30/2016 Consultation DISCHARGE DATE: FAMILY PHYSICIAN: Fabiana Quintana MD ATTENDING PHYSICIAN: Narinder Souza Thank you for allowing me to participate in the care of Ms. Dye. MD ASH PFEIFFER/yosi /[id number] d: 05/07/161821 t: 05/08/16 1002, CONSULTATION REPORT
--- NOTE | ~2016-04-30 | OR ---
PATIENT'S NAME: CHINA DYE [facility] AGE: 60 Y [address] ROOM: [place] [address] [facility] ADMIT DATE: 04/30/2016 OR/Procedure Report DISCHARGE DATE: FAMILY PHYSICIAN: Fabiana Quintana MD ATTENDING PHYSICIAN: Narinder Souza SURGEON: Narinder Souza DO NCA CERTIFIED CONCIERGE: DATE OF PROCEDURE: 05/01/2016 Corrected patient account number 05/06/16 AO PREOPERATIVE DIAGNOSIS: Superficial sternal wound infection. POSTOPERATIVE DIAGNOSIS: Superficial sternal wound infection. PROCEDURE PERFORMED: Wound incision and debridement with primary closure. DESCRIPTION OF PROCEDURE: Mrs. Dye has been brought to the operative suite today after informed consent was obtained for revision of her incision. She was sterilely prepped and draped after a general anesthetic. The sternal wound was excised in an elliptical fashion. Dissection was carried down to the level of the sternum. There was no evidence of sternal involvement. No evidence of deep tissue necrosis or deep tissue purulence. The incision was then made hemostatic with electrocautery and then copiously irrigated with plain saline and antibiotic-infused saline. We then utilized 0 Prolene to approximate the deep tissues and then skin roseanna to close the skin incision. The patient tolerated the procedure well and was extubated and transferred to the recovery area in stable condition. DO SALBADOR RANDOLPH/torstenl /[id number] Corrected patient account number 05/06/16 AO d: 05/01/16 1304 t: 05/12/16 0942, OPERATIVE SUMMARY
--- NOTE | ~2016-04-30 | HP ---
PATIENT'S NAME: CHINA DYE [facility] AGE: 60 Y [address] ROOM: [id number] [place], [place] [address] LOCATION: GPCU ADMIT DATE: 04/30/2016 History & Physical DISCHARGE DATE: FAMILY PHYSICIAN: Fabiana Quintana MD ATTENDING PHYSICIAN: Narinder Gibbs DATE OF SERVICE: HISTORY OF PRESENT ILLNESS: The patient is a 60-year-old white female, who was just discharged from the hospital 2 weeks ago after having undergone coronary artery bypass grafting X3 vessels back on April 09, 2016. The patient was discharged with home health care services. She was asked to see us a week ago after the home health care nurse called and had some concerns about the patient's sternum. She was evaluated in the office and was found to have a possible infection. A culture was obtained and indeed returned as Staph aureus for which the patient was treated with Bactrim DS based on the susceptibility. The home health care nurse picked up the medication and provided it to the patient. The patient's living conditions are reported to be deplorable. The patient also according to the nurses have been nonadherent with medication administration and the living conditions are unclean and this includes the clothing that the patient wears. Nurse and the patient had been performing the cleansing and dressing changes and we had subsequent close followup appointments pre-scheduled. The patient had been absent to a couple of these appointments. Multiple phone calls were made. We were working with the wound clinic, so we could obtain possibly a more occlusive dressing. Today, the patient did show up for her wound appointment. The wound appears far worse than it did previously. It is significantly malodorous. There is copious drainage due to the distal site of the incision. There is a lot of yellow slough to the wound. There is some necrotic tissue as well. The patient denies any fever, chills, or sweats. She has had appropriate bowel function. She states that she has been eating reasonably. She denies shortness of breath, [place], PND, or orthopnea. She does admit to having started smoking again, but states only half a pack a day. When probing the wound, it does go down to all wire sets. Given this, we will need to admit the patient for surgical debridement. PAST MEDICAL HISTORY: Illnesses: COPD, hypertension, coronary artery disease, depression, anxiety, bipolar disorder, personality disorder, tobacco abuse, history of sepsis with E. coli, and obesity. SURGERIES/PROCEDURES: Coronary artery bypass grafting x3 on 04/09/2016, cholecystectomy, PATIENT'S NAME: CHINA DYE [facility] AGE: 60 Y [address] ROOM: [place] [address] [facility] ADMIT DATE: 04/30/2016 History & Physical DISCHARGE DATE: FAMILY PHYSICIAN: Fabiana Quintana MD ATTENDING PHYSICIAN: Narinder Gibbs hysterectomy, right oophorectomy, tubal ligation, partial liver removal, and bilateral cataract. ALLERGIES: PENICILLIN, CEPHALOSPORINS, AND CONTRAST DYE. SOCIAL HISTORY: The patient currently resides in [place]. Essentially, she is homeless, living in a hotel room with 7 other people, some family members. She is from approximately 10 years back and she is a current smoker, stating that she has cut back from 2 packs of cigarettes a day to a half a pack. She has smoked for about 45 years. She does have a history of abuse with methamphetamine and pills. She has had previous overdose in the past. She no longer uses illicit drugs and has been clean from this. She has never had a problem with alcohol. She has 4 grown children. FAMILY HISTORY: Her father from throat cancer. Her mother had history of heart disease and had a bypass. Her brother from alcoholism. ADMIT MEDICATIONS: 1. [place] 5/325 1-2 every 4 to 6 hours as needed. 2. Nicotine patch 21 mg, in a.m., change daily. 3. Lamictal 100 mg p.o. b.i.d. 4. Celexa 40 mg p.o. daily. 5. Norvasc 2.5 mg b.i.d. 6. Aspirin 81 mg daily. 7. Lipitor 40 mg at nighttime. 8. Coreg 6.25 mg 1 p.o. b.i.d. 9. Lasix 40 mg daily. 10. Mucinex 1200 mg p.o. b.i.d. 11. Potassium chloride 20 mEq p.o. daily. 12. Albuterol metered-dose inhaler, 2 puffs per inhalation b.i.d. SYSTEM REVIEW: A 10-point review of systems was obtained and pertinent positives are noted as per HPI. All others were negative. PHYSICAL EXAMINATION: VITAL SIGNS: Blood pressure 142/55, pulse is 83, respirations 16, and temp is 99.1 degrees. Weight is 180 pounds, height is 5 feet 5 inches. GENERAL: She is very pleasant appearing. She is somewhat tearful regarding the news about being readmitted. She is, however, cooperative. HEENT: Normocephalic. EOMI intact. Conjunctivae clear. LUNGS: Clear to auscultation bilaterally. PATIENT'S NAME: CHINA DYE [facility] AGE: 60 Y [address] ROOM: [place] [address] LOCATION: GPCU ADMIT DATE: 04/30/2016 History & Physical DISCHARGE DATE: FAMILY PHYSICIAN: Fabiana Quintana MD ATTENDING PHYSICIAN: Narinder Gibbs CARDIOVASCULAR: Regular rate and rhythm without murmur detected. CHEST: Wounds are as in HPI. The wound is 2.5 cm in width and 11.27 cm in length. The 6 o'clock depth is 7.2 cm, at 12 o'clock depth is 5 cm. ABDOMEN: Obese, soft, and nontender by 4 quadrants with positive bowel sounds throughout. EXTREMITIES: No overt varicosities or edema. MUSCULOSKELETAL: Good range of motion of bilateral upper and lower extremities. NEUROLOGIC: Alert and oriented with symmetrical strength. SKIN: As above. ASSESSMENT AND PLAN: Sternal wound infection. This will require debridement operatively. Possible placement of a wound VAC. This will be determined once the wound has been opened. Coronary artery disease. We will re-optimize medications. Overall, I do think the patient has been taking her cardiac medications as she is stable from this aspect. We will have cardiac rehab to see the patient while she is hospitalized. We will visit with care management tomorrow. In planning for eventual discharge, we will recommend [facility] transfer. Further recommendations will be forthcoming once further information is available. We will also update the patient's primary care provider, Dr. Quintana with regard to the patient's admission. KRYSTLE HENRIQUEZ APRN FOR NARINDER GIBBS DO DLQ/modl /[id number] D: [id number]: [id number] HISTORY & PHYSICAL
--- NOTE | ~2016-04-30 | DS ---
PATIENT'S NAME: CHINA DYE [facility] AGE: 60 Y [address] ROOM: [id number] [place], [place] [address] LOCATION: GPCU ADMIT DATE: 04/30/2016 Discharge Summary DISCHARGE DATE: 05/08/2016 FAMILY PHYSICIAN: Fabiana Quintana MD ATTENDING PHYSICIAN: Narinder Souza [facility]SE: The patient is a 60-year-old white female, re-admitted to [facility] on April 30, 2016, after being evaluated in the Wound Care Clinic with findings of a superficial sternal wound infection that required surgical debridement. The patient's wound was being followed by Home Health Care services and followup visits to our office. At that time, this wound was minor in nature. The patient's environmental situation contributed to worsening of the wound, and therefore, admission with debridement proved to be the best option. On 05/01/2016, the patient was taken to the operative suite by Dr. Souza for a wound incision and debridement with primary closure. The procedure was without complication. The patient was transferred back to the progressive care floor following the procedure. The patient had retention sutures and roseanna intact. The patient's pain was well controlled. The patient did require oxygen at this admission. She worked with cardiac rehab for rehabilitative purposes. We did ask infectious disease doctors to take a look at the patient and weigh in on the treatment course. They did recommend a change in antibiotics from the oral cephalexin to doxycycline given the diphtheroids that were present on the culture. This change in medication was instituted. The patient's incision was monitored daily. The patient was evaluated for possible usp placement; however, the patient really did not have any qualifiers. As she stabilized, we did have Cardiac Rehab do a walk test to qualify her for home oxygen, and as discharge neared, we did get this set up. We did ask Home Health Care services to once again follow the patient. The wound was healing nicely at the time of discharge with no redness, warmth, drainage, or swelling. Dressing instructions were given to the patient, and the patient was found stable for discharge to home on 05/08/2016. DISCHARGE ORDERS: Include cardiac prudent diet. Activity levels that require no pulling, pushing, or lifting greater than 10 pounds until May 21, 2016. The patient was asked to please wear her surgical bra and have her until May 21, 2016. The patient is to follow up with Krystle Henriquez NP on May 12, 2016 at 1:00 p.m. The patient will resume Home Health Care Services. The patient is to use dry gauze and Kerlix to the sternal incision to cover of the site and keep dry. Dressing changes should be on Thursday, Wednesdays, and Fridays. The patient may shower as well. FINAL DIAGNOSES: 1. Superficial wound infection to the sternum. 2. Hypoxemia. PATIENT'S NAME: CHINA DYE [facility] AGE: 60 Y [address] ROOM: [place] [address] LOCATION: GPCU ADMIT DATE: 04/30/2016 Discharge Summary DISCHARGE DATE: 05/08/2016 FAMILY PHYSICIAN: Fabiana Quintana MD ATTENDING PHYSICIAN: Narinder Souza 3. Chronic obstructive pulmonary disease. 4. Tobaccoism. 5. Poverty. 6. Coronary artery disease. 7. Hypertension. 8. Bipolar disorder. DISCHARGE MEDICATIONS: 1. Lamictal 100 mg twice a day. 2. Norvasc 2.5 mg twice a day. 3. Aspirin 81 mg daily. 4. Lipitor 40 mg daily. 5. Carvedilol 6.25 mg b.i.d. 6. Lasix 40 mg daily. 7. Guaifenesin 1200 mg twice a day. 8. Potassium chloride 20 mEq daily. 9. Albuterol per inhalation 2 puffs 4 times a day. 10. Celexa 40 mg at h.s. 11. Doxycycline 100 mg twice a day. 12. Percocet 5/325 one to two tablets q.6 hours p.r.n. 13. Nicotine patch 21 mg transdermal daily. 14. vitamin daily. The patient verbalizes understanding of the discharge orders. The patient discharged to home in stable condition. KRYSTLE HENRIQUEZ APRN FOR DO DORIAN RANDOLPH/yosi /[id number] d: 05/24/16 0338 t: 05/26/16 1554, DISCHARGE SUMMARY
[~2016-04-30 11:00] MED LIST: ASPIRIN LO-DOSE81 MG PO; CORDARONE,PACE200 MG PO; COREG6.25 MG PO; K-TAB ER20 MEQ PO; LAMICTAL100 MG PO; LASIX40 MG PO; LIPITOR40 MG PO; MUCINEX1200 MG PO; NICODERM / HABIT7 MG TRANS; NICODERM CQ1 EAC1 TRANS; NICOTINE PATCH1 EAC1 TRANS; NORVASC2.5 MG PO; PAXIL40 M1 PO; PERCOCET 5-3251 EACH PO; PROVENTIL OR V6.7 GM INH
[2016-04-30] MEDS ORDERED: PERCOCET 5-3251 EACH PO (11:29)
[2016-04-30] MEDS ORDERED: CELEXA40 MG PO (11:29)
[2016-04-30] MEDS ORDERED: BACTRIM DS1 TAB PO (11:29)
--- NOTE | 2016-04-30 12:11 | NUR ---
Pt is 60 y/o female admit for sternal wound infection for . PT alert and oriented x3. Resides at home with her daughter. Hx CABG in Feb, glaucoma, htn,hypercholest,COPD,bronchitis,SOB,cough,anxiety,depression,mood swings,bipolar,hx meth abuse,personality disorder. Pt states her sternal wound had poor healing and kept draining. Pt states it's red and rates her pain at an 8/10. She's been on outpt antibiotic for about 9 days with little improvement.
[2016-04-30 13:02] LABS: BASOPHIL % 0.3 %; EOSINOPHIL # 0.5 K/uL (0.0-0.5); EOSINOPHIL % 8.3 %; HEMATOCRIT 31.5 % (33.0-46.0); HEMOGLOBIN 9.8 g/dL (10.0-15.0); IMMATURE GRANULOCYTE % 0.3 %; LYMPHOCYTE # 1.1 K/uL (0.8-4.0); LYMPHOCYTE % 18.5 %; MCH 29.6 pg (27.0-34.0); MCHC 31.1 gm/dL (32.0-36.5); MCV 95.2 fl (83.0-98.0); MONOCYTE # 0.5 K/uL (0.0-1.0); MONOCYTE % 8.6 %; MPV 9.1 fl (9.4-12.4); NEUTROPHIL # (ANC) 3.9 K/uL (1.8-7.8); NRBC % 0 /100WBC (0-0.00); RBC 3.31 M/uL (3.50-5.50); RDW-CV 14.6 % (11.9-14.6); WBC 6.2 K/uL (4.0-11.0)
[2016-04-30 13:06] LABS: PLATELET COUNT 235 K/uL (150-450)
[2016-04-30 13:29] LABS: ANION GAP 8.9 (10.0-19.0); CALCIUM 8.5 mg/dL (8.5-10.5); CREATININE 1.1 mg/dL (0.5-1.1); MAGNESIUM 2.1 mg/dL (1.3-2.6); POTASSIUM 3.9 mMol/L (3.7-5.1)
[2016-04-30 13:31] LABS: TOTAL BILIRUBIN 0.2 mg/dL (0.0-1.5)
--- NOTE | 2016-04-30 15:38 | NUR ---
Significant event: A&Ox3. HR 80's. Afebrile. SBP 130-140's. [place] for pain in sternum, last given at 1300. Sternum dressed with gauze and paper tape, no drainage at this time. Up 1 assist to bathroom and in halls. Follow Up: To have sternum debridement at [address] Souza 05/01/16. NPO at midnight.
--- NOTE | 2016-05-01 04:21 | NUR ---
Significant Event:VSS.1L OVERNIGHT, DESAT TO MID 80S ON RA WHEN ASLEEP. DRESSING TO STERNAL INCISION IS CDI. PT C/O PAIN, NORCO GIVEN X1. NPO AFTER MIDNIGHT. NS RUNNING @ 50ML/HR. Follow up:DEBRIDEMENT
--- NOTE | 2016-05-01 14:18 | NUR ---
[id number] Introduced self and CM role to Debbie. HORTENSIA Pilates Coordinator Aydee present. Debbie tells me that she was just recently in the hospital. She was dismissed with [facility] following her. She lives at the [facility] with her daughter. "I pay month to month there and that is where I live." I let her know that upon discharge it was recommended that she go to a SNF. She was in agreement with this plan. I went over all four SNFs here in town with her, she had no preference on which one she would go to when the time came. Right now she is on IV Abxs, so going to a community SNF won't be suitable at this time as they don't do IV Abxs. In reviewing her chart, I noticed she only had Medicare AB. I did ask her if she had a supplement or if she had ever applied for Medicaid. She tells me she has no supplement and she has applied for Medicaid in the past but was denied. I asked if she would be ok with me making a referral to [facility] to see if the ladies there could help her apply again for Medicaid or see why she wasn't accepted the last time. She was in agreement with this plans. Debbie denies any other questions, needs or concerns. Will continue to follow and assist. [id number] Made referral to Catrina in the [facility] dept, asked her to follow up with Debbie about Medicaid and applying for that again.
--- NOTE | 2016-05-01 16:44 | NUR ---
Significant event: A&Ox3. HR 60-70's. Afebrile. Came back from PACU with 3L of O2, have weaned down to 1L. Sternal wound debridement with closure done today, site stapled and covered with gauze/ABD. No drainage. NS at 50ml/hr. [place] to control pain, given twice, last at 1615. Refused lunch today. Has been up to bathroom 1 assist. Follow Up: Continue current POC.
--- NOTE | 2016-05-02 04:25 | NUR ---
Significant Event: PATIENT IS A/O X3. VSS. HR 50-60'S. SBP 90-110'S. AFEBRILE. 02 SATS IN MID 90'S UP TO 2L 02 WITH SLEEP. RA DURING DAY. C/O STERNAL PAIN. 2 TABS NORCO GIVEN X2 WITH RELIEF. LUNGS VARRIED FROM SLIGHTLY COARSE TO CLEAR/DIM THROUGHOUT. UP WITH SBA TO RESTROOM. BOWELS ACTIVE. VOIDS PER RESTROOM. STERNAL INCISION COVERED AND DRESSING C/D/I. IV TO LEFT INNER FOREARM WITH NS AT 50ML/HR. Follow up: CONTINUE TO MONITOR PER PLAN OF CARE.
[2016-05-02 05:10] LABS: BASOPHIL % 0.5 %; EOSINOPHIL # 1.1 K/uL (0.0-0.5); EOSINOPHIL % 14.1 %; HEMATOCRIT 34.7 % (33.0-46.0); HEMOGLOBIN 10.3 g/dL (10.0-15.0); IMMATURE GRANULOCYTE # 0.1 K/uL (0.0-0.3); IMMATURE GRANULOCYTE % 0.6 %; LYMPHOCYTE # 1.2 K/uL (0.8-4.0); LYMPHOCYTE % 15.1 %; MCH 29.4 pg (27.0-34.0); MCHC 29.7 gm/dL (32.0-36.5); MCV 99.1 fl (83.0-98.0); MONOCYTE # 0.6 K/uL (0.0-1.0); MONOCYTE % 7.5 %; NEUTROPHIL # (ANC) 4.9 K/uL (1.8-7.8); NEUTROPHIL % 62.2 %; NRBC % 0 /100WBC (0-0.00); PLATELET COUNT 208 K/uL (150-450); RDW-CV 14.7 % (11.9-14.6); WBC 7.9 K/uL (4.0-11.0)
[2016-05-02 05:28] LABS: ALBUMIN 2.9 gm/dL (3.5-5.0); ALK PHOS 110 IU/L (33-138); ALT 13 IU/L (12-78); AST 12 IU/L (10-40); BLOOD UREA NITROGEN 13 mg/dL (6-24); CALCIUM 8.6 mg/dL (8.5-10.5); CHLORIDE 103 mMol/L (96-110); CO2 30 mMol/L (22-32); CREATININE 0.9 mg/dL (0.5-1.1); SODIUM 140 mMol/L (135-145); TOTAL PROTEIN 6.9 g/dL (6.0-8.4)
[2016-05-02 05:36] LABS: ESTIMATED GFR (MDRD EQUATION) > 60; TOTAL BILIRUBIN 0.3 mg/dL (0.0-1.5)
--- NOTE | 2016-05-02 13:49 | NUR ---
Stopped in the hallway to talk with Dr. Souza and Audelia See. Let them know that I had talked with Debbie yesterday and she was in agreement to going to a SNF upon discharge if she would qualify. I also let them know that I had made a referral to Catrina in the [place] office to talk with her about Medicaid. I did however, talk to them about what her qualifiers would be for a skilled stay at a SNF so that her Medicare would help cover some of her days. After talking to them, I also let them know that when I was in her room yesterday, her board stated that she was moving around SBA, which would mean she is doing almost to well to go to SNF for skilled stay. Dr. Souza thinks that she will be done with her IV Abxs would be done on Thursday and she would be switched to PO medications. Audelia stated that she didn't really know if she had any qualifiers but her home environment wasn't good and she was pretty much homeless. I let her know that sadly this wasn't a skilled qualifer so I wasn't so sure how we would be able to get her to a SNF upon discharge. I also let them know that if she didn't have skilled qualifers, it would be out of pocket and that might be pretty costly to Debbie. Both voiced understading to all of the above. I let them know that if we didn't find any skilled needs for her to go to a SNF, them discharge would most likely be home with [facility] again. Will see how the weekend goes and assess her discharge needs/issues on Thursday and go from there. CM to continue to follow and assist.
--- NOTE | 2016-05-02 16:09 | NUR ---
Significant event: Patient has been drowsy today, Oriented x3. Has been requiring 3 L of O2 NC, shallow breathing. Encouraged patient to use good pulmonary toileting. Walked a full lap with cardiac rehab, but refused to walk this afternoon. Lung sounds have been slightly coarse. Bumex 2 mg given, will give another dose prior to end of shift. Has had 1,500 ml in UOP. Decreased appetite, refused breakfast and lunch, but did agree to have an ensure for lunch. [place] given 1 tab at 1115, for pain to surgical site. MARLENE Nava changed dressing to sternum, stapled sutured and covered by mepilex. Edges are approximated, no drainage. 1 assist with gaitbelt, bed alarm on at all times. Follow Up: Remind patient of sternal precautions.
[2016-05-03 04:52] LABS: ALBUMIN 2.7 gm/dL (3.5-5.0); ANION GAP 8.7 (10.0-19.0); BLOOD UREA NITROGEN 15 mg/dL (6-24); CALCIUM 8.5 mg/dL (8.5-10.5); CHLORIDE 99 mMol/L (96-110); CREATININE 0.8 mg/dL (0.5-1.1); ESTIMATED GFR (MDRD EQUATION) > 60; PHOSPHORUS 3.1 mg/dL (2.5-4.9); POTASSIUM 3.7 mMol/L (3.7-5.1); SODIUM 140 mMol/L (135-145)
[2016-05-03 04:55] LABS: CO2 36 mMol/L (22-32)
--- NOTE | 2016-05-03 07:01 | NUR ---
Significant Event: A/0X3.DROWSY. RESTED IN BED ALL OF SHIFT. TURNS SELF. HEART HUGGER ON. NEEDS FREQUENT REMINDERS TO USE STERNAL PRECAUTIONS WHEN GETTING UP. AFEBRILE. VSS ON 3L. NORCO GIVEN X1. LAST DOSE WAS AT 2023.PATIENT WAS ABLE TO FIND RELIEF AND NO C/O OF PAIN THE REST OF THE SHIFT. IV TO L) FA SL. CONTINUE WITH IV VANCO. MEPLIEX DRESSING TO STERNUM C/D/I. VOIDED 900 ML. NO BM THIS SHIFT. Follow up:
--- NOTE | 2016-05-03 16:46 | NUR ---
Significant Event: A/OX3, VSS ON 1L PER NC. HR'S 60-70'S, SBP 100-130'S. PT. GETS UP SBA TO BATHROOM & CHAIR. PT. NEEDS REMINDERS TO USE STERNAL PRECAUTIONS. STERNAL INCISION IS CLOSED, SUTURED & STAPLED SHUT. MEPILEX DRESSING WAS CHANGED THIS AM PER DR. PARIS, NEEDS CHANGED AGAIN, IT'S LOOSE AGAIN & COMING OFF. OLD CHEST TUBE SITES ARE HEALED. IV BUMEX GIVEN TODAY X2, PT. HAD 950, X1 VOID UOP. NO BM TODAY. PT. HAS SLEPT MOST OF THE DAY. 1 TAB OF NORCO GIVEN AT 0948. Follow up: CONTINUE WITH POC.
--- NOTE | 2016-05-04 05:03 | NUR ---
Significant Event: Patient alert and oriented. Up with standby assist. Reminders needed for sternal precautions. VSS. Oxygen increased to 2L while asleep as patient desats. Sats 70%s if no oxygen when asleep. [place] given x1 with relief noted. Patient slept for most of shift. Pleasant and cooperative with cares. Follow up: continue plan of care
--- NOTE | 2016-05-04 16:13 | NUR ---
Significant Event: PT. A/OX3, VSS ON 1L PER NC. 2 TABS OF NORCO GIVEN AT 1226 FOR COMPLAINTS OF PAIN. PT. GETS UP SBA TO BATHROOM, WALKED IN HALLS X1 TODAY. SLEPT IN ROOM ON/OFF MOST OF THE DAY. CHEST INCISION DRESSING IS C/D/I, OLD R)CHEST TUBE SITE HAS ALLEVYN DRESSING WHICH IS C/D/I. SURGICAL BRA & HEART HUGGER ARE ON. LAST OF IVP BUMEX WAS GIVEN THIS AFTERNOON, 2850ml X1 INC. VOID OUT. VANCO D/C'D AND STARTED ON CEFAZOLIN 2gm Q8HR. Follow up: CONTINUE WITH POC.
--- NOTE | 2016-05-05 04:30 | NUR ---
Significant Event: A/0 X 3, UP AD MARISELA IN ROOM BUT SHE DOES NOT FOLLOW STERNAL PRECAUTIONS WELL. FREQUENT REMINDERS REINFORCED, BUT PROVIDED LITTLE USELFULL VALUE. DRESSINGS REMIAN INTACT. VSS ON 1L, TRIED TO WEEN TO RA BUT WAS UNSUCCESSFUL. AFEBRILE. IV ANCEF Q8 HOURS. 2 NORCO GIVEN X 1 WITH RELIEF NOTED, GIVEN AT 2014. Follow up:
--- NOTE | 2016-05-05 10:35 | NUR ---
A-S/P STERNAL WOUND DEBRIDEMENT W/CLOSURE. LABS: NA 140, K+ 3.7, GLU 100, BUN 15, HVAC REFRIGERATION TECHNICIAN 0.8, ALB 2.7 MEDS: BUMEX AND VANCO D/C; LASIX AND CEFAZOLIN STARTED DIET RX: CARDIAC W/ENSURE ENLIVE TID (STARTED 05/02/16). PO INTAKE HAS BEEN REFUSALS-100%. MOST OF THE REFUSALS ARE IN THE AM. LUNCH AND DINNER PO INATKE ARE 50-100%. EST NUTR NEEDS: [id number] KCALS AND 86-114 GM PROTEIN D-AT NUTRITION RISK W/INCREASED PROTEIN NEEDS R/T HEALING AEB STERNAL WOUND. I-CONTINUE W/ENSURE ENLIVE TID M/E-GOAL: PO INTAKE >/=50% BY NEXT F/U 1)F/U PO INTAKE, SUPPLEMENT, AND POC IN 3-5 DAYS 2)ASSIST NEEDED
--- NOTE | 2016-05-05 12:54 | NUR ---
Social visit with Debbie. HORTENS[employer] international controller Aydee also present during my visit. Talked with Debbie about dismissal, home with [facility] vs SNF. I let her know at this time, she was doing well with therapies so I was concerned that she wouldn't qualify for a skilled stay at a SNF upon dismissal. I let her know that doctors were concerned with her returing home to a clean environment to heal in. She states he would return back to the [facility] here in town and understands the importance of keeping that sternal wound clean and following dismissal instructions. "I can't go to a skilled place and pay out of pocket, I don't have that kind of money. I will go back to the hotel, take my medications and watch my wound and I will be fine." I let her know that we would resume her HHC with [facility], she is fine with this. I asked if she had issues getting her medications, she tells me she doesn't. She gets them filled at the [facility] and most times her daughter gets them and brings them to her. Once again let her know how important it was that she takes care of that wound properly and takes all of her medications as instructed. No other questions, needs or concerns. Will continue to follow and assist. Plan for return home with [facility] when ready to dismiss.
--- NOTE | 2016-05-05 16:19 | NUR ---
Significant event: A&Ox3. HR 50-80's. Afebrile. SBP 110-130's. Lung sounds clear/diminished. Attempted to wean patient to RA multiple times today, on 1 Liter of oxygen sats upper 90's, but on RA sats drop to 84-88%. Encouraged IS and FV use, at bedside. Nocro at 0910 for pain, with relief noted. Patient refuses to sit in chair, but does occasionally dangle at side of bed. Walked in halls with Cardiac rehab. Surgical bra on, dressing to sternum intact. Woc signed off. Had BM today. Follow Up: Encourage FV/IS, activity.
--- NOTE | 2016-05-06 00:29 | NUR ---
Significant Event: PT HAS RESTED WELL IN ROOM ALL SHIFT. UP TO BATHROOM WITH STAND BY ASSIST. CONT. WITH SURGICAL BRA AND HEART HUGGER. NEEDS FREQUENT REMINDERS FOR STERNAL PRECAUTIONS. ENCOURAGE IS AND FLUTTER VALVE. ABLE TO GET IS UP TO 1000, BUT MOSTLY 750. 2 NORCO FOR C/O CHEST PAIN AT 1920, WITH STATED RELIEF. CONT. TO MONITOR. Follow up: CONT. WITH IV ANCEF, Q 8 HR. WORK TOWARD D/C.
--- NOTE | 2016-05-06 02:49 | NUR ---
Significant Event: A&OX3. Up SBA. Pt does not follow sternal precautions well. On tele SR. VSS. 1L of O2 sats in mid 90s with on drops to mid 80s with off. Encourage IS. Denied pain. Drsg to sternum intact. Surgical bra on. IV to L) forearm SL. Follow up: Encourage IS and activity
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
--- NOTE | 2016-05-07 03:50 | NUR ---
Significant Event: A/0X3. RESTED IN BED ALL OF SHIFT. TURNS SELF. AFEBRILE. VSS ON 1L. HEART HUGGER AND BRA ON FOR SUPPORT. STILL NEED REMINDERS WHEN GETTING UP TO FOLLOW STERNAL PRECAUTIONS. IV TO L) FA SL. CONTINUE WITH IV CEFAZOLIN. NORCO GIVEN X1. LAST DOSE WAS AT 1920. PATIENT WAS ABLE TO FIND RELEF AND NO C/O NO OTHER C/O OF PAIN. VOIDED 900 MLS. NO BM THIS SHIFT. DRESSING TO STERNUM C/D/I. Follow up: CONTINUE WITH PLAN OF CARE. WEAN O2.
[2016-05-07 05:29] LABS: BASOPHIL % 0.6 %; EOSINOPHIL # 0.6 K/uL (0.0-0.5); EOSINOPHIL % 13.4 %; HEMATOCRIT 31.4 % (33.0-46.0); HEMOGLOBIN 9.5 g/dL (10.0-15.0); IMMATURE GRANULOCYTE % 0.4 %; LYMPHOCYTE # 1.2 K/uL (0.8-4.0); LYMPHOCYTE % 25.9 %; MCH 29.1 pg (27.0-34.0); MCHC 30.3 gm/dL (32.0-36.5); MCV 96.3 fl (83.0-98.0); MONOCYTE # 0.4 K/uL (0.0-1.0); MONOCYTE % 9.2 %; MPV 8.9 fl (9.4-12.4); NEUTROPHIL # (ANC) 2.4 K/uL (1.8-7.8); NEUTROPHIL % 50.5 %; NRBC % 0 /100WBC (0-0.00); PLATELET COUNT 200 K/uL (150-450); RBC 3.26 M/uL (3.50-5.50); WBC 4.8 K/uL (4.0-11.0)
[2016-05-07 05:42] LABS: ALBUMIN 2.7 gm/dL (3.5-5.0); ANION GAP 8.9 (10.0-19.0); BLOOD UREA NITROGEN 19 mg/dL (6-24); CALCIUM 8.7 mg/dL (8.5-10.5); CHLORIDE 96 mMol/L (96-110); CREATININE 0.8 mg/dL (0.5-1.1); ESTIMATED GFR (MDRD EQUATION) > 60; PHOSPHORUS 3.7 mg/dL (2.5-4.9); POTASSIUM 3.9 mMol/L (3.7-5.1); SODIUM 142 mMol/L (135-145)
[2016-05-07 05:45] LABS: CO2 41 mMol/L (22-32)
--- NOTE | 2016-05-07 12:09 | NUR ---
Social visit with Debbie today. She tells me that doctors are talking about sending her home in the next couple days and she was going to need O2. I let her know that I had heard that same thing, asked if she had any concerns about going back home with the support of [facility] and her family as well as her new need for O2. She states she has no concerns about this and is fine with [facility] following again when she goes home. I explained to her that with her O2 she and her family need to be careful with smoking and if possible stop or avoid it all together. She tells me she understands this. I asked if her daughter will be able to come and pick her up when she is ready to dismiss. She states she should be able to. Let her know again how important it was to make sure that she kept her wound clean and also took her medications like she was supposed to. Again she agreed and stated she would do all of that. I asked her again if she had any concerns about getting her medications upon discharge, she again tells me no. No other questions, needs or concerns. Will continue to follow and assist.
--- NOTE | 2016-05-07 14:48 | NUR ---
Significant Event: A/O. VSS on 1L/NC. Attempted to wean to room air while awake and up in chair, down to 80% on RA at rest. Encouraged IS/FV and ambulation. Follow up: walk test and dismissal tomorrow
--- NOTE | 2016-05-08 04:53 | NUR ---
Significant Event: A/0 X 3, UP AD MARISELA IN ROOM. ALL VSS ON 1-, NO COMPLICATIONS DURING SHIFT. PLAN TO D/C TODAY WITH HOME HEALTH FOLLOWING. NEED WALK TEST PERFORMED. DAUGHTER WILL TRADE SALES ASSISTANT. Follow up:
[2016-05-08] MEDS ORDERED: DOXYCYCLINE100 MG (11:29)
[2016-05-08] MEDS ORDERED: NICOTINE PATCH1 EACH TRANS (11:33)
[2016-05-08] MEDS ORDERED: PRENATAL 1+1)(P1 TAB PO (11:36)
--- NOTE | 2016-05-08 11:54 | NUR ---
1100 Call to Vickie with [facility], let her know that Debbie was dismissing today so please follow up with her tomorrow. Vickie states they will do that. 1510 Faxed discharge orders and medications to [facility], [phone]. No other questions, needs or concers. Will continue to follow and assist.
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
--- NOTE | 2016-05-08 17:07 | NUR ---
PATIENT ENCOURAGED TO AMBULATE AND SIT UP IN CHAIR. UP IN CHAIR FOR MEALS AND UP IN [place] W/ CARDIAC REHAB, 1 ASSIST. VSS, NO C/O PAIN. DRESSING CHANGED TO MIDSTERNAL CHEST, C/D/I.
--- NOTE | 2016-05-08 22:14 | NUR ---
PATIENT DISCHARGED TO HOME ESCORTED BY DAUGHTER. RN WENT THROUGH ALL EDUCATION AND MEDICATION LIST. Julius ALEJANDRE REMOVED PERIPHERAL IV PRIOR TO DISCHARGE. PATIENT'S CONDITION WAS STABLE AND DISCHARGED UNDER DOCTOR'S ORDERS.
== END 2016-05-08 20:45 | disposition home health service (06) | DRG 858 ==
LOC: GPCU 11:08
PROVIDERS: Nurse Practitioner Women's Health; ADMIT Thoracic Surgery (Cardiothoracic Vascular Surgery)
PROC: 0JB60ZZ Excision of Chest Subcutaneous Tissue and Fascia, Open Approach (ICD-10-PCS; principal; 2016-05-01)
DX: T81.4XXA Infection following a procedure, initial encounter (principal); I10 Essential (primary) hypertension; Y83.2 Surgical operation with anastomosis, bypass or graft as the cause of abnormal reaction of the patient, or of later complication, without mention of misadventure at the time of the procedure; J44.9 Chronic obstructive pulmonary disease, unspecified; F17.210 Nicotine dependence, cigarettes, uncomplicated; I25.10 Atherosclerotic heart disease of native coronary artery without angina pectoris; F41.9 Anxiety disorder, unspecified; F31.9 Bipolar disorder, unspecified; B95.61 Methicillin susceptible Staphylococcus aureus infection as the cause of diseases classified elsewhere; R09.02 Hypoxemia
CPT/HCPCS: G0463; J0690; J0885; J1650; J2001; J3370; J7030; J7040; J7050

== ENCOUNTER → 2016-05-19 | Outpatient (CLI) | payer MEDICARE, MEDICAID ==
[~2016-05-19] MED LIST changes: +ALEVE220 M1 PO; +BACTRIM DS1 TAB PO; +CELEXA40 MG PO; +CIPRO500 MG PO; +DOXYCYCLINE100 MG; +HYDROCODON-ACE1 EAC4 PO; +LEVAQUIN500 MG PO; +NICOTINE PATCH1 EACH TRANS; +PRENATAL 1+1)(P1 TAB PO
== END | disposition disaster alternative care site (69) ==
LOC: LNHI 17:12
DX: T81.4XXA Infection following a procedure, initial encounter (principal)

== ENCOUNTER 2016-05-20 08:55 | Observation (INO) | payer MEDICARE, MEDICAID ==
[~2016-05-20] VITALS: Ht 165.1 cm; Wt 80.4 kg
--- NOTE | ~2016-05-20 | OR ---
PATIENT'S NAME: CHINA DYE [facility] AGE: 60 Y [address] ROOM: [place] [address] [facility] AD[facility] DATE: 05/20/2016 OR/Procedure Report DISCHARGE DATE: FAMILY PHYSICIAN: Fabiana Quintana MD ATTENDING PHYSICIAN: Narinder Gibbs SURGEON: Narinder Gibbs DO STIFF STRAW HAT WASHER: DATE OF PROCEDURE: 05/20/2016 PREOPERATIVE DIAGNOSIS: Superficial wound dehiscence. POSTOPERATIVE DIAGNOSIS: Superficial wound dehiscence. PROCEDURE PERFORMED: Opening of wound dehiscence, debridement of superficial tissue, and closure of wound. DESCRIPTION OF PROCEDURE: Mrs. Dye was brought to the operative suite, sterilely prepped and draped in usual fashion after induction of general anesthetic. Her previous sternal incision was opened approximately 1 cm in the midportion of the incision, but did tunnel superiorly. She was sterilely prepped and draped in usual fashion. The incision was opened, and we found nicely granular tissue with some epithelialized tissue, looked likely a small seroma, preventing approximation of the deeper tissues. There was no tunneling inferiorly. The soft tissues were sharply debrided, and electrocautery was used for hemostasis. Copious amounts of antibiotic-infused saline was used to irrigate the soft tissues and then we utilized 0 Prolene to approximate the tissues and then roseanna to approximate the skin. The patient tolerated the procedure well, was extubated, and transferred to the recovery area in stable condition. NARINDER GIBBS DO MCB/modl /[id number] d: 05/20/162041 t: 05/21/16 1045, OPERATIVE SUMMARY
[~2016-05-20 08:55] MED LIST changes: -ALEVE220 M1 PO; -CIPRO500 MG PO; -HYDROCODON-ACE1 EAC4 PO; -LEVAQUIN500 MG PO
[2016-05-20 09:32] LABS: BLOOD URINE 50 /UL (NEGATIVE); COLOR URINE YELLOW (YELLOW); GLUCOSE URINE NEGATIVE (NEGATIVE); KETONE URINE NEGATIVE (NEGATIVE); LEUKOCYTES URINE 25 /UL (NEGATIVE); NITRITE URINE NEGATIVE (NEGATIVE); PROTEIN URINE 30 mg/dL (NEGATIVE); SPEC GRAVITY URINE 1.025 (1.003-1.035); TURBIDITY URINE 1+ (CLEAR); UROBILINOGEN URINE 1 mg/dL (NORMAL)
[2016-05-20] MEDS ORDERED: ALEVE220 M1 PO (09:33)
[2016-05-20 09:45] LABS: BACTERIA URINE FEW (NEGATIVE); MUCUS URINE 3+ (NEGATIVE)
[2016-05-20 09:54] LABS: BASOPHIL # 0.1 K/uL (0.0-0.2); EOSINOPHIL # 0.3 K/uL (0.0-0.5); EOSINOPHIL % 4.3 %; HEMOGLOBIN 12.5 g/dL (10.0-15.0); IMMATURE GRANULOCYTE % 0.3 %; LYMPHOCYTE # 1.1 K/uL (0.8-4.0); LYMPHOCYTE % 17.6 %; MCV 92.9 fl (83.0-98.0); MONOCYTE # 0.5 K/uL (0.0-1.0); NEUTROPHIL # (ANC) 4.3 K/uL (1.8-7.8); NEUTROPHIL % 68.8 %; NRBC % 0 /100WBC (0-0.00); WBC 6.3 K/uL (4.0-11.0)
[2016-05-20 09:55] LABS: HEMATOCRIT 40.5 % (33.0-46.0); MCH 28.7 pg (27.0-34.0); MCHC 30.9 gm/dL (32.0-36.5); PLATELET COUNT 282 K/uL (150-450); RBC 4.36 M/uL (3.50-5.50)
[2016-05-20 10:01] LABS: PROTIME 11.7 SECONDS (9.6-11.1)
[2016-05-20 10:02] LABS: INR - (THERAPEUTIC) 1.1 (0.9-1.1)
[2016-05-20 10:13] LABS: ALBUMIN 3.6 gm/dL (3.5-5.0); ANION GAP 9.4 (10.0-19.0); CALCIUM 9.1 mg/dL (8.5-10.5); POTASSIUM 3.4 mMol/L (3.7-5.1)
[2016-05-20 10:16] LABS: TOTAL BILIRUBIN 0.5 mg/dL (0.0-1.5)
--- NOTE | 2016-05-20 19:12 | NUR ---
Significant Event:pt had surgery today, to floor at 1500. Dressing to midchest CDI. Pain controlled pt had fent in pacu and 2 norcos at about 1400. Pt weaned 1liter from 2l. Pt alert/orientedx3. Follow up:home tomorrow
--- NOTE | 2016-05-21 04:03 | NUR ---
Patient a/ox3. VSS on RA. Wears 1.5L at HS per home setting. Lungs clear. Bowel sounds present. Up standby assist. IV to Lt forearm saline locked. Vanco x1. [place] x1 for incisional pain, relief noted. Dressing to sternum is CDI. Home today.
[2016-05-21] MEDS ORDERED: HYDROCODON-ACE1 EAC4 PO (10:33)
[2016-05-21] MEDS ORDERED: CIPRO500 MG PO (10:34)
[2016-05-21] MEDS ORDERED: LEVAQUIN500 MG PO (11:38)
--- NOTE | 2016-05-21 12:00 | NUR ---
D/C ORDERS RECIEVED. REVIEWED WITH THE PATIENT ALL D/C INSTRUCTIONS INCLUDING MEDICATIONS, FOLLOW-UP APPT, AND POST SURGICAL CARES. EDER PRINTOUTS GIVEN ON ALL NEW MEDS AND SURGICAL SITE CARES/WHEN TO NOTIFY PROVIDER. DRESSING WAS CHANGED BY MARLENE ARELLANO THIS AM AND REMAINS C/D/I. HOME HEALTH WILL FOLLOW. APPOINTMENT WAS MADE FOR THE PATIENT. VERBALIZED UNDERSTANDING OF ALL D/C INFORMATION. PIV D/C'D AND CATHETER IS INTACT. TAKEN VIA W/C AND RN TO THE FRONT ENTRANCE OF THE HOSPITAL AND CAB TO DRIVE HER HOME. UP TO DATE ON PNEUMONIA VACCINE.
--- NOTE | 2016-05-21 12:56 | NUR ---
Reviewed chart, pt discharging home today and Dr Souza has ordered HH. Talked with patient, she has had [facility] HH in the past and would like them to see her again. Called Vickie at [facility] [phone] and faxed orders to her at [phone]. They will call and arrange a time to go see pt this week. Let pt know that, denies other needs.
== END 2016-05-21 12:00 | disposition home health service (06) ==
LOC: GPCU 08:55 → GSDC 08:55 → GPCU 14:53 → GSDC 14:54 → GPCU 05-21 12:00
PROVIDERS: ADMIT Thoracic Surgery (Cardiothoracic Vascular Surgery)
PROC: 0HQ5XZZ Repair Chest Skin, External Approach (ICD-10-PCS; principal; 2016-05-20)
DX: T81.31XA Disruption of external operation (surgical) wound, not elsewhere classified, initial encounter (principal); I25.2 Old myocardial infarction; F31.9 Bipolar disorder, unspecified; I10 Essential (primary) hypertension; E78.5 Hyperlipidemia, unspecified; J44.9 Chronic obstructive pulmonary disease, unspecified; F41.9 Anxiety disorder, unspecified; Z88.0 Allergy status to penicillin; Z88.1 Allergy status to other antibiotic agents; Z88.5 Allergy status to narcotic agent; Z91.041 Radiographic dye allergy status; F17.200 Nicotine dependence, unspecified, uncomplicated; Z90.49 Acquired absence of other specified parts of digestive tract; Z90.710 Acquired absence of both cervix and uterus; Z98.41 Cataract extraction status, right eye; Z98.42 Cataract extraction status, left eye; Z95.1 Presence of aortocoronary bypass graft; Z98.890 Other specified postprocedural states; Y83.8 Other surgical procedures as the cause of abnormal reaction of the patient, or of later complication, without mention of misadventure at the time of the procedure
CPT/HCPCS: J1644; J2001; J3010; J3370; J7120

== ENCOUNTER 2016-10-30 14:30 | Emergency (ER) | payer MEDICARE, MEDICAID ==
--- NOTE | ~2016-10-30 | ER ---
PATIENT'S NAME: CHINA DYE [facility] AGE: 61 Y [address] ROOM: [place] [id number] LOCATION: [facility] ADMIT DATE: 10/30/2016 ER/Outpatient Report DISCHARGE DATE: 10/30/2016 FAMILY PHYSICIAN: Yury Huff MD ATTENDING PHYSICIAN: Vikash Humphries Time of Arrival: 1430 hours. Time Seen: 1451 hours. IDENTIFICATION: A 61-year-old female with a chief complaint of back pain. HISTORY OF PRESENT ILLNESS: The patient is a 61-year-old female, who has back pain and ran out of her Ultram [address] ago[address] Huff. He was unable to see her today, so she presents here. When I asked her how long she has had back pain, she says "of about 20 years." The patient had a recent MRI and is supposed to go see Dr. Roach at [facility]. Because she believes he is the back specialist. It sounds like her appointment actually was with Dr. Eid at [facility] on the 04 of December. Her MRI revealed bilateral L5 spondylolysis with grade 1 spondylolisthesis of L5 over S1, degenerative changes of lateral recess and foraminal stenosis. No spinal stenosis. The patient's pain is bilateral low back pain. No radiation of her pain. No numbness or tingling. No bowel or bladder problems. She tried physical therapy two weeks ago with no relief. She said the Ultram does not help and she specifically requested a prescription for hydrocodone from the nurse. The friend who is with her was also requesting stronger pain medication for her. ALLERGIES: TO CONTRAST DYE, CIPRO, TYLENOL NO. 3, AND PENICILLIN. CURRENT MEDICATIONS: 1. Tramadol 2 tablets every 4 hours. On October 08 had 30 tablets filled; on October 22 had 30 tablets filled. 2. Lamictal 100 mg, filled on June 04. 3. Paxil. 4. Prednisone. 5. Tylenol No.3, filled in August. 6. Proventil. 7. Citalopram. 8. Aspirin. 9. Atorvastatin. 10. Norvasc. 11. Stool softener. PATIENT'S NAME: [facility]ARDIK [facility] AGE: 61 Y [address] ROOM: [place], [place] [address] LOCATION: ED ADMIT DATE: 10/30/2016 ER/Outpatient Report DISCHARGE DATE: 10/30/2016 FAMILY PHYSICIAN: Yury Huff MD ATTENDING PHYSICIAN: Vikash Humphries 12. Coreg. 13. Hydrocodone, filled on May 21. Apparently all of these other medications were filled on May 21. MEDICAL PROBLEMS: Chronic back pain, COPD, heart disease, hypertension, previous [place]. PRIOR SURGERIES: CABG, liver surgery, and cholecystectomy. SOCIAL HISTORY: The patient resides at [facility]. Tobacco use, 3/4 pack per day. Alcohol use, denies. Drug use, denies. REVIEW OF SYSTEMS: All systems reviewed and negative other than what is noted in the HPI. PHYSICAL EXAMINATION: VITAL SIGNS: Blood pressure 142/73, weight 86.3 kg, pulse 83, respirations 20, temperature 98.1, and sats 94%. GENERAL: A 61-year-old female in [id number] distress. Rating her pain 8/10. HEENT: Unremarkable. LUNGS: Clear to auscultation. HEART: Regular rate and rhythm. ABDOMEN: Soft, nondistended and nontender. SKIN: [place], warm, and dry. NEURO: No focal deficit. Negative straight leg raise. MUSCULOSKELETAL: The patient is tender to minimal palpation anywhere on her back. She has no erythema. Her pain is out of proportion to the examination and is not reproducible. IMPRESSION: Chronic low back pain. PLAN: Toradol 60 mg IM x1, tramadol 50 mg q.4 hours p.r.n. pain dispensed 30 with 0 refills as discussed with Dr. Huff, who agreed with the plan of care, rest, no lifting and follow up with Dr. Huff next week. The patient and her friend understand and all questions have been answered. VIKASH HUMPHRIES MD PATIENT'S NAME: CHINA DYE [facility] AGE: 61 Y [address] ROOM: [place], [place] [address] LOCATION: ED ADMIT DATE: 10/30/2016 ER/Outpatient Report DISCHARGE DATE: 10/30/2016 FAMILY PHYSICIAN: Yury Huff MD ATTENDING PHYSICIAN: Vikash Humphries/yosi /[id number] d: 10/30/16 232 t: 11/01/16 1500, OUTPATIENT REPORT
[~2016-10-30 14:30] MED LIST changes: +ALEVE220 M1 PO; +CIPRO500 MG PO; +HYDROCODON-ACE1 EAC4 PO; +LEVAQUIN500 MG PO
== END 2016-10-30 15:35 | disposition disaster alternative care site (69) ==
LOC: GMED 14:30
DX: G89.29 Other chronic pain (principal); M54.5 Low back pain; F17.210 Nicotine dependence, cigarettes, uncomplicated; Z88.0 Allergy status to penicillin; Z88.1 Allergy status to other antibiotic agents; Z88.8 Allergy status to other drugs, medicaments and biological substances; Z91.041 Radiographic dye allergy status; Z79.82 Long term (current) use of aspirin; Z79.891 Long term (current) use of opiate analgesic; Z79.899 Other long term (current) drug therapy; I10 Essential (primary) hypertension; J44.9 Chronic obstructive pulmonary disease, unspecified; Z95.1 Presence of aortocoronary bypass graft; Z90.49 Acquired absence of other specified parts of digestive tract
CPT/HCPCS: J1885